=== PATIENT | female | born 1965 | race Hispanic/Latino ===

== ENCOUNTER 2021-10-01 17:15 | Emergency (ER) | payer OTHER ==
--- OUTSIDE RECORDS SUMMARY | 2021-10-01 17:18 | XMS REPORT | Continuity of Care Document ---
:1965 Author Organization [facility] t Address [address] [place] [address] Care Team Providers Name Role Phone WHITE Attending Clinician Unavailable WHITE Admitting Clinician Unavailable Problems This patient has no known problems. Allergies, Adverse Reactions, Alerts This patient has no known allergies or adverse reactions. Social History Smoking Status Start Date Stop Date Source Never smoker [facility] ([facility]KE[facility]) Medications This patient has no known medications. Procedures This patient has no known procedures. Encounters Start End Encounter Admission Attending Care Care Encounter Source Date/Time Date/Time Type Type Clinicians Facility Department ID 2020-06-01 2020-06-01 PAIN IN 3 FARSHAD [facility] [id number] [facility] [address] 15:48:00 23:59:00 RIGHT HIP [facility] [address] [facility] [address] ([address] V[address]SA) [place] [address] Results Test Description Test Time Test Comments Results Result Sour e Comments XR HIP COMP 2-3 2020-06-01 views 22:10:43 [facility] (LUF/KEITH/SA)Name: ZENIA PAUL : [id number] Sex: F Pr ocedure: XR HIP COMP 2-3 viewsOrder Date: 06/01/2020 3:57 PMOrdering Provider: FARSHAD Downinginical Indication: [id number]: Pain in right hip jointComparison: NoneFINDINGS:There is no fracture or dislocation.No significant degenerative changes.Visualized portions of the hemipelvis are normal.There is no lytic or sclerotic lesion.No suspicious calcifications.Impres delma:1. Negative exam of the right hip.This final report was electronically signed by Dr Celi Hopkins MD 06/01/202010:04 PMDictated By: CELI HOPKINSDate: 06/01/2020 22:04 XR LUMBAR SPINE 2020-06-01 (AP/LATERAL) 17:18:46 [facility] ([facility]/)Name: ZENIA PAUL : [id number] Sex: F Pr ocedure: XR LUMBAR SPINE (AP/LATERAL)Order Date: 06/01/2020 3:58 PMOrdering Provider: FARSHAD Ford Indication: [id number]: Low back painComparison: NoneFindings:There is no acute fracture or subluxation.Vertebral body heights are maintained.No significant degenerative disc changes or facet arthropathy.There is no appreciable scoliosis.There are no lytic or sclerotic lesions.The sacroiliac joints are normal.Impression:1. Negative Three-view exam of the lumbar spine.This final report was electronically signed by Dr Celi Hopkins MD 06/01/20205:12 PMDictated By: CELI HOPKINSDate: 06/01/2020 17:12
[2021-10-01] MEDS ORDERED: NA CHLORIDE 0.9% 500 ML ONE (17:41)
[2021-10-01] MEDS ORDERED: ONDANSETRON 4 MG/2 ML VIAL ONE (17:41)
[2021-10-01] MEDS ORDERED: MORPHINE 4 MG/ML SYR ONE (17:41)
[2021-10-01 18:09] LABS: Absolute Lymphocytes (CBC) 3.2 K/uL (0.7-4.9); Hematocrit 42.8 % (36.0-45.0); Lymphocytes % 35.4 % (15.3-44.8); MPV 7.9 fL (7.6-11.3); RBC Red Blood Cell Count 4.98 M/uL (3.86-4.86)
[2021-10-01 18:30] LABS: Albumin 3.9 g/dL (3.4-5.0); Bilirubin Direct 0.1 mg/dL (0-0.2); Bilirubin Total 0.6 mg/dL (0.2-1.0); Potassium 3.9 mmol/L (3.5-5.1); Protein, Total 8.7 g/dL (6.4-8.2)
--- NOTE | 2021-10-01 19:06 | RAD REPORT ---
EXAM DESCRIPTION: CTAbdomen Pelvis W Contrast - 10/01/2021 6:56 pm CLINICAL HISTORY: Abdominal pain. ABD PAIN COMPARISON: No comparisons TECHNIQUE: Biphasic CT imaging of the abdomen and pelvis was performed with 100 ml non-ionic IV cont rast. All CT scans are performed using dose optimization technique as appropriate and may include automated exposure control or mA/KV adjustment according to patient size. FINDINGS: The lung bases are clear. The liver, spleen, pancreas, adrenal glands and kidneys are within normal limits. No bowel obstruction, free air, free fluid or abscess. The appendix is normal. No evidence of signi ficant lymphadenopathy. No suspicious bony findings. IMPRESSION: No acute intra-abdominal or pelvic finding.
[2021-10-01] MEDS ORDERED: KETOROLAC 30 MG/ML INJ ONE (19:43)
--- NOTE | 2021-10-01 19:58 | RAD REPORT ---
EXAM DESCRIPTION: US - Abdomen Exam Limited - 10/01/2021 7:42 pm CLINICAL HISTORY: RUQ pain COMPARISON: ABDOMINAL EXAM LIMITED dated 11/27/2009 FINDINGS: The gallbladder demonstrates no gallstones. No pericholecystic fluid or gallbladder wall t hickening. The common bile duct is normal measuring 4-5 mm. The liver demonstrates no findings of intrahepatic biliary dilatation. IMPRESSION: Unremarkable examination.
--- NOTE | 2021-10-01 20:08 | EDPHYS ---
Physician Documentation [facility] Name: Neelam Zazueta Age: 56 yrs Sex: Female : 1965 Arrival Date: 10/01/2021 Time: 17:22 Bed 14 Private MD: ED Physician Ernesto Jordan HPI: 10/01 17:39 This 56 yrs old Female presents to ER via Ambulatory with complaints of pm1 Abdominal Pain. 17:39 The patient presents with abdominal pain in the right upper quadrant. pm1 17:39 Onset: The symptoms/episode began/occurred 2 day(s) ago. The symptoms do not radiate. pm1 Associated signs and symptoms: none. Pertinent negatives: nausea, vomiting, and diarrhea, chest pain, shortness of breath. The symptoms are described as achy. Modifying factors: The symptoms are alleviated by nothing, the symptoms are aggravated by lying down. Severity of pain: in the emergency department the pain is actually worse. The patient has not experienced similar symptoms in the past. The patient has not recently seen a physician. . Historical: - Allergies: 17:31 No Known Allergies; ll1 - PMHx: 17:31 None; ll1 - PSHx: 17:31 tubes tied; ll1 - Immunization history:: Client reports receiving the 2nd dose of the Covid vaccine. - Social history:: Smoking status: Patient denies any tobacco usage or history of. ROS: 17:39 Constitutional: Negative for fever, chills, and weight loss, Cardiovascular: Negative pm1 for chest pain, palpitations, and edema, Respiratory: Negative for shortness of breath, cough, wheezing, and pleuritic chest pain. 17:39 Back: Negative for injury and pain, : Negative for injury, bleeding, discharge, and swelling, MS/Extremity: Negative for injury and deformity, Skin: Negative for injury, rash, and discoloration, Neuro: Negative for headache, weakness, numbness, tingling, and seizure. 17:39 Abdomen/GI: Positive for abdominal pain, Negative for nausea, vomiting, and diarrhea. 17:39 All other systems are negative. Exam: 17:39 Constitutional: This is a well developed, well nourished patient who is awake, alert, pm1 and in no acute distress. Head/Face: Normocephalic, atraumatic. 17:39 Back: No spinal tenderness. No costovertebral tenderness. Full range of motion. Skin: Warm, dry with normal turgor. Normal color with no rashes, no lesions, and no evidence of cellulitis. MS/ Extremity: Pulses equal, no cyanosis. Neurovascular intact. Full, normal range of motion. 17:39 Eyes: Exam is negative for acute changes, Periorbital structures: appear normal, Conjunctiva: normal, no injection. 17:39 ENT: Exam is negative for acute changes, Mouth: no acute changes, Lips: normal, moist, Oral mucosa: normal, pink and intact, moist. 17:39 Cardiovascular: Exam negative for acute changes, Rate: normal, Rhythm: regular, Pulses: no pulse deficits are appreciated, Heart sounds: normal, normal S1and S2. 17:39 Respiratory: Exam negative for acute changes, respiratory distress, shortness of breath, Breath sounds: are clear throughout. 17:39 Abdomen/GI: Inspection: obese Palpation: soft, in all quadrants, mild abdominal tenderness, in the right upper quadrant. 17:39 Neuro: Exam negative for acute changes, Orientation: is normal, Mentation: is normal, Motor: is normal, moves all fours. Vital Signs: 17:30 BP 147 / 87; Pulse 87; Resp 16; Temp 97.7; Pulse Ox 99% ; Weight 92.53 kg; Pain 10/10; ll1 19:36 BP 122 / 69; Pulse 62; Resp 20; Pulse Ox 100% on R/A; vc1 MDM: 17:32 Patient medically screened. pm1 18:23 Data reviewed: vital signs. Data interpreted: Pulse oximetry: on room air is 99 %. pm1 Interpretation: normal. 20:07 Counseling: I had a detailed discussion with the patient and/or guardian regarding: the pm1 historical points, exam findings, and any diagnostic results supporting the discharge/admit diagnosis, lab results, radiology results, the need for outpatient follow up, to return to the emergency department if symptoms worsen or persist or if there are any questions or concerns that arise at home. 20:09 ED course: Patient with pain improvement with massage to right mid back. Palpation to pm1 the area caused pain to RUQ. Will treat the patient with valium and lidoderm patch. 20:11 ED course: PMP[place] reviewed. pm1 10/01 17:36 Order name: Basic Metabolic Panel; Complete Time: 18:32 pm1 10/01 17:36 Order name: CBC with Diff; Complete Time: 18:21 pm1 10/01 17:36 Order name: Hepatic Function; Complete Time: 18:32 pm1 10/01 17:36 Order name: Lipase; Complete Time: 18:32 pm1 10/01 17:36 Order name: CT Abd/Pelvis - IV Contrast Only; Complete Time: 19:08 pm1 10/01 19:13 Order name: US Abdomen Limited; Complete Time: 20:04 pm1 10/01 17:36 Order name: IV Saline Lock; Complete Time: 18:01 pm1 10/01 17:36 Order name: Labs collected and sent; Complete Time: 18:01 pm1 Administered Medications: 17:55 Drug: Zofran (Ondansetron) 4 mg Route: IVP; Site: right antecubital; vg1 19:45 Follow up: Response: No adverse reaction vc1 17:55 Drug: NS 0.9% 500 ml Route: IV; Rate: bolus; Site: right antecubital; vg1 20:54 Follow up: IV Status: Completed infusion; IV Intake: 500ml vc1 17:57 Drug: morphine 4 mg Route: IVP; Site: right antecubital; vg1 19:45 Follow up: Response: No adverse reaction; Pain is increased; Pain is coming back now vc1 19:45 Drug: Ketorolac 30 mg Route: IVP; Site: right antecubital; vc1 20:51 Follow up: Response: No adverse reaction; Pain is decreased vc1 20:50 Drug: Lidoderm Patch 5 % (700 mg/patch) 1 patches Route: Topical; Site: abdomen; vc1 20:50 Drug: Valium (diazepam) 2 mg Route: PO; vc1 20:50 Follow up: Response: No adverse reaction vc1 Disposition: 10/02 07:27 Co-signature as Attending Physician, Ernesto Jordan MD. rn Disposition Summary: 10/01/21 20:07 Discharge Ordered Location: Home pm1 Problem: new pm1 Symptoms: have improved pm1 Condition: Stable pm1 Diagnosis - Abdominal pain, unspecified pm1 Followup: pm1 - With: Emergency Department - When: As needed - Reason: Worsening of condition Followup: pm1 - With: Private Physician - When: 2 - 3 days - Reason: Recheck today's complaints, Continuance of care, Re-evaluation by your physician Discharge Instructions: - Discharge Summary Sheet pm1 - Abdominal Pain, Adult pm1 - Muscle Strain pm1 Forms: - Medication Reconciliation Form pm1 - Thank You Letter pm1 - Antibiotic Education pm1 - Prescription Opioid Use pm1 Prescriptions: - Lidoderm 5 % Topical adhesive patch,medicated - apply 1 patch by TRANSDERMAL route once daily As needed 12 hours on and 12 pm1 hours off in 24 hour period; 10 patch; Refills: 0, Product Selection Permitted - Valium 2 mg Oral Tablet - take 1 tablet by ORAL route every 8 hours As needed; 6 tablet; Refills: 0, pm1 Product Selection Permitted Signatures: Dispatcher [employer] EDErnesto Hook MD MD rn Marinas, Patrick, NP FREE LANCE ARTIST pm1 Zina Ricardo RN RN vg1 Yamel Santillan RN RN ll1 Harini Barrera RN RN vc1
--- NOTE | 2021-10-01 20:08 | ER ---
Nurse's Notes [facility] Name: Neelam Zazueta Age: 56 yrs Sex: Female : 1965 Arrival Date: 10/01/2021 Time: 17:22 Bed 14 [facility] MD: Diagnosis: Abdominal pain, unspecified Presentation: 10/01 17:30 Chief complaint: Patient states: RUQ abd pain since Friday. Coronavirus screen: Vaccine ll1 status: Patient reports receiving the 2nd dose of the covid vaccine. Client denies travel out of the [place] in the last 14 days. At this time, the client does not indicate any symptoms associated with coronavirus-19. Ebola Screen: Patient denies travel to an Ebola-affected area in the 21 days before illness onset. Initial Sepsis Screen: Does the patient meet any 2 criteria? No. Patient's initial sepsis screen is negative. Does the patient have a suspected source of infection? Yes: Acute abdominal pain. Risk Assessment: Do you want to hurt yourself or someone else? Patient reports no desire to harm self or others. Onset of symptoms was September 28, 2021. 17:30 Method Of Arrival: Ambulatory ll1 17:30 Acuity: SOFI 3 ll1 Historical: - Allergies: 17:31 No Known Allergies; ll1 - PMHx: 17:31 None; ll1 - PSHx: 17:31 tubes tied; ll1 - Immunization history:: Client reports receiving the 2nd dose of the Covid vaccine. - Social history:: Smoking status: Patient denies any tobacco usage or history of. Screenin:05 Abuse screen: Denies threats or abuse. Nutritional screening: No deficits noted. vg1 Tuberculosis screening: No symptoms or risk factors identified. Fall Risk No fall in past 12 months (0 pts). No secondary diagnosis (0 pts). IV access (20 points). Ambulatory Aid- None/Bed Rest/Nurse Assist (0 pts). Gait- Normal/Bed Rest/Wheelchair (0 pts) Mental Status- Oriented to own ability (0 pts). Total Ott Fall Scale indicates No Risk (0-24 pts). Assessment: 18:04 General: Appears in no apparent distress. uncomfortable, Behavior is calm, cooperative. vg1 Pain: Complains of pain in posterior aspect of right lateral abdomen and right upper quadrant Pain currently is 10 out of 10 on a pain scale. Quality of pain is described as sharp, Pain began 2-3 days ago. Neuro: Level of Consciousness is awake, alert, obeys commands, Oriented to person, place, time, situation. Cardiovascular: Patient's skin is warm and dry. Respiratory: Airway is patent Respiratory effort is even, unlabored. GI: Abdomen is round non-distended, Bowel sounds present X 4 quads. Abdomen is tender to palpation in right upper quadrant Patient currently denies diarrhea, nausea, vomiting. : No signs and/or symptoms were reported regarding the genitourinary system. EENT: No signs and/or symptoms were reported regarding the EENT system. Derm: Skin is intact, is healthy with good turgor. Musculoskeletal: Circulation, motion, and sensation intact. 19:36 Reassessment: Patient and/or family updated on plan of care and expected duration. Pain vc1 level reassessed. Pain: Complains of pain in right upper quadrant Pain does not radiate. Pain currently is 8 out of 10 on a pain scale. Vital Signs: 17:30 BP 147 / 87; Pulse 87; Resp 16; Temp 97.7; Pulse Ox 99% ; Weight 92.53 kg; Pain 10/10; ll1 19:36 BP 122 / 69; Pulse 62; Resp 20; Pulse Ox 100% on R/A; vc1 ED Course: 17:22 Patient arrived in ED. am2 17:31 Triage completed. ll1 17:31 Arm band placed on Patient placed in an exam room, on a stretcher. ll1 17:32 Quang Huang NP is PHCP. pm1 17:32 Ernesto Jordan MD is Attending Physician. pm1 17:37 Zina Ricardo, RN is Primary Nurse. vg1 17:50 Initial lab(s) drawn, by oh, sent to lab. Inserted saline lock: 22 gauge in right vg1 antecubital area, using aseptic technique. Blood collected. 18:05 Patient has correct armband on for positive identification. Placed in gown. Bed in low vg1 position. Call light in reach. Side rails up X 1. Adult w/ patient. 18:05 No provider procedures requiring assistance completed. vg1 18:56 CT Abd/Pelvis - IV Contrast Only In Process Unspecified. EDMS 19:29 Primary Nurse role handed off by Zina Ricardo, RN cs9 19:42 Abdomen Limited In Process Unspecified. EDMS 20:53 IV discontinued, intact, bleeding controlled, No redness/swelling at site. Pressure vc1 dressing applied. Administered Medications: 17:55 Drug: Zofran (Ondansetron) 4 mg Route: IVP; Site: right antecubital; vg1 19:45 Follow up: Response: No adverse reaction vc1 17:55 Drug: NS 0.9% 500 ml Route: IV; Rate: bolus; Site: right antecubital; vg1 20:54 Follow up: IV Status: Completed infusion; IV Intake: 500ml vc1 17:57 Drug: morphine 4 mg Route: IVP; Site: right antecubital; vg1 19:45 Follow up: Response: No adverse reaction; Pain is increased; Pain is coming back now vc1 19:45 Drug: Ketorolac 30 mg Route: IVP; Site: right antecubital; vc1 20:51 Follow up: Response: No adverse reaction; Pain is decreased vc1 20:50 Drug: Lidoderm Patch 5 % (700 mg/patch) 1 patches Route: Topical; Site: abdomen; vc1 20:50 Drug: Valium (diazepam) 2 mg Route: PO; vc1 20:50 Follow up: Response: No adverse reaction vc1 Intake: 20:54 IV: 500ml; Total: 500ml. vc1 Outcome: 20:07 Discharge ordered by MD. pm1 20:53 Discharged to home ambulatory. vc1 20:53 Condition: good 20:53 Discharge instructions given to patient, Instructed on discharge instructions, follow up and referral plans. medication usage, Demonstrated understanding of instructions, follow-up care, medications, Prescriptions given X 2. 20:54 Patient left the ED. vc1 Signatures: Dispatcher [employer] EDMS Quang Huang, MELISSA MARINE ENGINE MACHINIST APPRENTICE pm1 Jimena Al am2 Zina Ricardo RN RN vg1 Yamel Santillan RN RN 1 Katherine Bernard cs9 Harini Barrera RN RN vc1 Corrections: (The following items were deleted from the chart) 18:03 15:50 Inserted saline lock: 22 gauge in right antecubital area, using aseptic vg1 technique. Blood collected. [facility] 18:03 15:50 Initial lab(s) drawn, by me, sent to lab. vg1 vg1
[2021-10-01] MEDS ORDERED: LIDOCAINE 4% PATCH ONE (20:41)
[2021-10-01] MEDS ORDERED: DIAZEPAM 5 MG TABLET ONE (20:41)
[2021-10-01 21:41] VITALS: TEMP 97.7
[2021-10-01 21:42] VITALS: BP 122/69; O2SAT 100
== END 2021-10-01 20:54 | disposition home or self-care (01) ==
LOC: ER 17:15
DX: R10.11 Right upper quadrant pain (principal)
CPT/HCPCS: 96361; 85025; 80048; 36415; 80076; 83690; 74177; 76705; 96375; 96374; 99284; Q9967; J7040; J2405

== ENCOUNTER 2023-01-14 14:03 | Emergency (ER) | payer OTHER ==
--- OUTSIDE RECORDS SUMMARY | 2023-01-14 14:10 | XMS REPORT | Continuity of Care Document ---
:1965 Author Organization [facility] t Address [address] [place] [address] [address] [place] [address] Care Team Providers Name Role Phone Greg Ramos Primary Care Physician [phone] FARSHAD NICHOLAS Attending Clinician Unavailable FARSHAD NICHOLAS Admitting Clinician Unavailable Problems This patient has no known problems. Allergies, Adverse Reactions, Alerts This patient has no known allergies or adverse reactions. Social History Smoking Status Start Date Stop Date Source Never smoker [facility] ([facility]) Medications Ordered Filled Start Stop Current Ordering Indication Dosage Frequency Signature Comments Components Source Medication Medication Date Date Medication? Clinician (SIG) Name Name BROMPHEN/PS 0 No EUDOEPHEDRI 8-22 NE 00:00: HCL/DEXTRO 00 METHORPHAN HBR 30-2-10 MG/5ML SYRP METFORMIN 2021-0 No 500 HYDROCHLORI 8-18 DE ER 500 00:00: MG TB24 00 METFORMIN 2021-0 No 500 HYDROCHLORI 8-18 DE ER 500 00:00: MG TB24 00 TAKE 1 2021-0 No 1000 TABLET 8-08 DAILY 00:00: DIRECTED. 00 TAKE 1 2021-0 No 1000 TABLET 8-08 DAILY 00:00: DIRECTED. 00 TAKE 1 2021-0 No 1000 TABLET 8-08 DAILY 00:00: DIRECTED. 00 TAKE 1 2021-0 No 20 TABLET 7-26 DAILY. 00:00: 00 TAKE 1 2021-0 No 20 TABLET 7-26 DAILY. 00:00: 00 TAKE 1 2021-0 No 20 TABLET 7-26 DAILY. 00:00: 00 TAKE 1 2021-0 No 20 TABLET 7-25 DAILY. 00:00: 00 TAKE 1 2021-0 No 20 TABLET 7-25 DAILY. 00:00: 00 TAKE 1 2022-0 No TABLET 7-25 DAILY. 00:00: 00 TAKE 1 2022-0 No 20 TABLET 7-25 DAILY. 00:00: 00 metformin 2022-0 No 1mg ER 500 mg 4-10 24 hr 00:00: tablet,exte 00 nded release (gastric) Unithroid 2022-0 No 1mcg 100 mcg 4-10 tablet 00:00: 00 metformin 2022-0 No 1mg ER 500 mg 4-10 24 hr 00:00: tablet,exte 00 nded release (gastric) Unithroid 2-0 No 1mcg 100 mcg 4-10 tablet 00:00: 00 metformin 2022-0 No 1mg ER 500 mg 4-10 24 hr 00:00: tablet,exte 00 nded release (gastric) Dose 2-0 No Unknown 4-10 00:00: 00 metformin 2022-0 No 1mg ER 500 mg 4-10 24 hr 00:00: tablet,exte 00 nded release (gastric) Unithroid 2-0 No 1mcg 100 mcg 4-10 tablet 00:00: 00 atorvastati 2-0 No 1mg n 10 mg 4-07 tablet 00:00: 00 lisinopril 2022-0 No 1mg 20 mg 4-07 tablet 00:00: 00 Dose 2022-0 No Unknown 4-07 00:00: 00 Dose 2022-0 No Unknown 4-07 00:00: 00 Dose 2022-0 No Unknown 4-07 00:00: 00 Dose 2022-0 No Unknown 4-07 00:00: 00 Dose 2022-0 No Unknown 4-07 00:00: 00 Dose 2022-0 No Unknown 4-07 00:00: 00 Dose 2022-0 No Unknown 4-07 00:00: 00 Dose 2022-0 No Unknown 4-07 00:00: 00 Dose 2022-0 No Unknown 4-07 00:00: 00 Dose 2022-0 No Unknown 4-07 00:00: 00 Dose 2022-0 No Unknown 4-07 00:00: 00 Dose 2022-0 No Unknown 4-07 00:00: 00 Dose 2022-0 No Unknown 4-07 00:00: 00 Dose 2022-0 No Unknown 4-07 00:00: 00 Dose 2022-0 No Unknown 4-07 00:00: 00 Dose 2022-0 No Unknown 4-07 00:00: 00 Dose 2022-0 No Unknown 4-07 00:00: 00 Dose 2022-0 No Unknown 4-07 00:00: 00 Dose 2022-0 No Unknown 4-07 00:00: 00 Dose 2022-0 No Unknown 4-07 00:00: 00 Dose 2022-0 No Unknown 4-07 00:00: 00 Dose 2022-0 No Unknown 4-07 00:00: 00 Dose 2022-0 No Unknown 4-07 00:00: 00 Dose 2022-0 No Unknown 4-07 00:00: 00 Dose 2022-0 No Unknown 4-07 00:00: 00 Dose 2022-0 No Unknown 4-07 00:00: 00 Dose 2022-0 No Unknown 4-07 00:00: 00 Dose 2022-0 No Unknown 4-07 00:00: 00 Dose 2022-0 No Unknown 4-07 00:00: 00 Dose 2022-0 No Unknown 4-07 00:00: 00 Dose 2022-0 No Unknown 4-07 00:00: 00 Dose 2022-0 No Unknown 4-07 00:00: 00 Dose 2022-0 No Unknown 4-07 00:00: 00 Dose 2022-0 No Unknown 4-07 00:00: 00 atorvastati 2022-0 No 1mg n 10 mg 4-07 tablet 00:00: 00 lisinopril 2022-0 No 1mg 20 mg 4-07 tablet 00:00: 00 atorvastati 2022-0 No 1mg n 10 mg 4-07 tablet 00:00: 00 lisinopril 2022-0 No 1mg 20 mg 4-07 tablet 00:00: 00 Dose 2022-0 No Unknown 4-07 00:00: 00 Dose 2022-0 No Unknown 4-07 00:00: 00 Dose 2022-0 No Unknown 4-07 00:00: 00 Dose 2022-0 No Unknown 4-07 00:00: 00 Dose 2022-0 No Unknown 4-07 00:00: 00 Dose 2022-0 No Unknown 4-07 00:00: 00 Dose 2022-0 No Unknown 4-07 00:00: 00 Dose 2022-0 No Unknown 4-07 00:00: 00 Dose 2022-0 No Unknown 4-07 00:00: 00 Dose 2022-0 No Unknown 4-07 00:00: 00 Dose 2022-0 No Unknown 4-07 00:00: 00 Dose 2022-0 No Unknown 4-07 00:00: 00 Dose 2022-0 No Unknown 4-07 00:00: 00 Dose 2022-0 No Unknown 4-07 00:00: 00 Dose 2022-0 No Unknown 4-07 00:00: 00 Dose 2022-0 No Unknown 4-07 00:00: 00 Dose 2022-0 No Unknown 4-07 00:00: 00 Dose 2022-0 No Unknown 4-07 00:00: 00 Dose 2022-0 No Unknown 4-07 00:00: 00 Dose 2022-0 No Unknown 4-07 00:00: 00 Dose 2022-0 No Unknown 4-07 00:00: 00 Dose 2022-0 No Unknown 4-07 00:00: 00 Dose 2022-0 No Unknown 4-07 00:00: 00 Dose 2022-0 No Unknown 4-07 00:00: 00 Dose 2022-0 No Unknown 4-07 00:00: 00 Dose 2022-0 No Unknown 4-07 00:00: 00 Dose 2022-0 No Unknown 4-07 00:00: 00 Dose 2022-0 No Unknown 4-07 00:00: 00 Dose 2022-0 No Unknown 4-07 00:00: 00 Dose 2022-0 No Unknown 4-07 00:00: 00 Dose 2022-0 No Unknown 4-07 00:00: 00 Dose 2022-0 No Unknown 4-07 00:00: 00 Dose 2022-0 No Unknown 4-07 00:00: 00 Dose 2022-0 No Unknown 4-07 00:00: 00 Dose 2022-0 No Unknown 4-07 00:00: 00 Dose 2022-0 No Unknown 4-07 00:00: 00 Dose 2022-0 No Unknown 4-07 00:00: 00 Dose 2022-0 No Unknown 4-07 00:00: 00 Dose 2022-0 No Unknown 4-07 00:00: 00 Dose 2022-0 No Unknown 4-07 00:00: 00 Dose 2022-0 No Unknown 4-07 00:00: 00 Dose 2022-0 No Unknown 4-07 00:00: 00 Dose 2022-0 No Unknown 4-07 00:00: 00 Dose 2022-0 No Unknown 4-07 00:00: 00 Dose 2022-0 No Unknown 4-07 00:00: 00 Dose 2022-0 No Unknown 4-07 00:00: 00 Dose 2022-0 No Unknown 4-07 00:00: 00 Dose 2022-0 No Unknown 4-07 00:00: 00 Dose 2022-0 No Unknown 4-07 00:00: 00 Dose 2022-0 No Unknown 4-07 00:00: 00 Dose 2022-0 No Unknown 4-07 00:00: 00 Dose 2022-0 No Unknown 4-07 00:00: 00 Dose 2022-0 No Unknown 4-07 00:00: 00 Dose 2022-0 No Unknown 4-07 00:00: 00 Dose 2022-0 No Unknown 4-07 00:00: 00 atorvastati 2022-0 No 1mg n 10 mg 4-07 tablet 00:00: 00 lisinopril 2022-0 No 1mg 20 mg 4-07 tablet 00:00: 00 Dose 2022-0 No Unknown 4-07 00:00: 00 Dose 2022-0 No Unknown 4-07 00:00: 00 Dose 2022-0 No Unknown 4-07 00:00: 00 Dose 2022-0 No Unknown 4-07 00:00: 00 Dose 2022-0 No Unknown 4-07 00:00: 00 Dose 2022-0 No Unknown 4-07 00:00: 00 Dose 2022-0 No Unknown 4-07 00:00: 00 Dose 2022-0 No Unknown 4-07 00:00: 00 Dose 2022-0 No Unknown 4-07 00:00: 00 Dose 2022-0 No Unknown 4-07 00:00: 00 Dose 2022-0 No Unknown 4-07 00:00: 00 Dose 2022-0 No Unknown 4-07 00:00: 00 Dose 2022-0 No Unknown 4-07 00:00: 00 Dose 2022-0 No Unknown 4-07 00:00: 00 Dose 2022-0 No Unknown 4-07 00:00: 00 Dose 2022-0 No Unknown 4-07 00:00: 00 Dose 2022-0 No Unknown 4-07 00:00: 00 Dose 2022-0 No Unknown 4-07 00:00: 00 Dose 2022-0 No Unknown 4-07 00:00: 00 Dose 2022-0 No Unknown 4-07 00:00: 00 Dose 2022-0 No Unknown 4-07 00:00: 00 Dose 2022-0 No Unknown 4-07 00:00: 00 Dose 2022-0 No Unknown 4-07 00:00: 00 Dose 2022-0 No Unknown 4-07 00:00: 00 Dose 2022-0 No Unknown 4-07 00:00: 00 Dose 2022-0 No Unknown 4-07 00:00: 00 Dose 2022-0 No Unknown 4-07 00:00: 00 Dose 2022-0 No Unknown 4-07 00:00: 00 Dose 2022-0 No Unknown 4-07 00:00: 00 Dose 2022-0 No Unknown 4-07 00:00: 00 Dose 2022-0 No Unknown 4-07 00:00: 00 Dose 2022-0 No Unknown 4-07 00:00: 00 Dose 2022-0 No Unknown 4-07 00:00: 00 Dose 2022-0 No Unknown 4-07 00:00: 00 Dose 2022-0 No Unknown 4-07 00:00: 00 Dose 2022-0 No Unknown 4-07 00:00: 00 Dose 2022-0 No Unknown 4-07 00:00: 00 Dose 2022-0 No Unknown 4-07 00:00: 00 Dose 2022-0 No Unknown 4-07 00:00: 00 Dose 2022-0 No Unknown 4-07 00:00: 00 Dose 2022-0 No Unknown 4-07 00:00: 00 Dose 2022-0 No Unknown 4-07 00:00: 00 Dose 2022-0 No Unknown 4-07 00:00: 00 Dose 2022-0 No Unknown 4-07 00:00: 00 Dose 2022-0 No Unknown 4-07 00:00: 00 Dose 2022-0 No Unknown 4-07 00:00: 00 Dose 2022-0 No Unknown 4-07 00:00: 00 Lidoderm 5 2-0 No % % topical 2-15 patch 00:00: 00 cyclobenzap 2-0 No 1mg rine 10 mg 2-15 tablet 00:00: 00 Lidoderm 5 2022-0 No % % topical 2-15 patch 00:00: 00 cyclobenzap 2022-0 No 1mg rine 10 mg 2-15 tablet 00:00: 00 Lidoderm 5 2022-0 No % % topical 2-15 patch 00:00: 00 cyclobenzap 2022-0 No 1mg rine 10 mg 2-15 tablet 00:00: 00 Lidoderm 5 2022-0 No % % topical 2-15 patch 00:00: 00 cyclobenzap 2-0 No 1mg rine 10 mg 2-15 tablet 00:00: 00 Dose 2022-0 No Unknown 1-10 00:00: 00 Dose 2022-0 No Unknown 1-10 00:00: 00 Dose 2022-0 No Unknown 1-10 00:00: 00 Dose 2-0 No Unknown 1-10 00:00: 00 diclofenac 1-1 No 1% 1 % topical 1-10 gel 00:00: 00 ibuprofen 1-1 No 1mg 800 mg 1-10 tablet 00:00: 00 cyclobenzap 2020-1 No 1mg rine 10 mg 1-10 tablet 00:00: 00 diclofenac 1-1 No 1% 1 % topical 1-10 gel 00:00: 00 ibuprofen 1-1 No 1mg 800 mg 1-10 tablet 00:00: 00 cyclobenzap 1-1 No 1mg rine 10 mg 1-10 tablet 00:00: 00 diclofenac 1-1 No 1% 1 % topical 1-10 gel 00:00: 00 ibuprofen 1-1 No 1mg 800 mg 1-10 tablet 00:00: 00 cyclobenzap 1-1 No 1mg rine 10 mg 1-10 tablet 00:00: 00 diclofenac 2021-1 No 1% 1 % topical 1-10 gel 00:00: 00 ibuprofen 1-1 No 1mg 800 mg 1-10 tablet 00:00: 00 cyclobenzap 1-1 No 1mg rine 10 mg 1-10 tablet 00:00: 00 Dose 1-1 No Unknown 0-09 00:00: 00 Dose 1-1 No Unknown 0-09 00:00: 00 Dose 1-1 No Unknown 0-09 00:00: 00 Dose 1-1 No Unknown 0-09 00:00: 00 glimepiride 2020-1 No 1mg 4 mg tablet 0-08 00:00: 00 Dose 2020-1 No Unknown 0-08 00:00: 00 metformin 2020-1 No 1mg 1,000 mg 0-08 tablet 00:00: 00 metformin 2020-1 No 1mg 1,000 mg 0-08 tablet 00:00: 00 Unithroid 2020-1 No 1mcg 100 mcg 0-08 tablet 00:00: 00 Unithroid 2020-1 No 1mcg 100 mcg 0-08 tablet 00:00: 00 glimepiride 2020-1 No 1mg 4 mg tablet 0-08 00:00: 00 Dose 2020-1 No Unknown 0-08 00:00: 00 metformin 2020-1 No 1mg 1,000 mg 0-08 tablet 00:00: 00 metformin 2020-1 No 1mg 1,000 mg 0-08 tablet 00:00: 00 Unithroid 2020-1 No 1mcg 100 mcg 0-08 tablet 00:00: 00 Unithroid 2020-1 No 1mcg 100 mcg 0-08 tablet 00:00: 00 glimepiride 2020-1 No 1mg 4 mg tablet 0-08 00:00: 00 Dose 2020-1 No Unknown 0-08 00:00: 00 metformin 2020-1 No 1mg 1,000 mg 0-08 tablet 00:00: 00 metformin 2020-1 No 1mg 1,000 mg 0-08 tablet 00:00: 00 Unithroid 2020-1 No 1mcg 100 mcg 0-08 tablet 00:00: 00 Unithroid 2020-1 No 1mcg 100 mcg 0-08 tablet 00:00: 00 glimepiride 2020-1 No 1mg 4 mg tablet 0-08 00:00: 00 Dose 2020-1 No Unknown 0-08 00:00: 00 metformin 2020-1 No 1mg 1,000 mg 0-08 tablet 00:00: 00 metformin 2020-1 No 1mg 1,000 mg 0-08 tablet 00:00: 00 Dose 2020-1 No Unknown 0-08 00:00: 00 Unithroid 2020-1 No 1mcg 100 mcg 0-08 tablet 00:00: 00 levothyroxi 2020-0 No 1mcg ne 100 mcg 7-20 tablet 00:00: 00 levothyroxi 2021-0 No 1mcg ne 100 mcg 7-20 tablet 00:00: 00 levothyroxi 2021-0 No 1mcg ne 100 mcg 7-20 tablet 00:00: 00 levothyroxi 2021-0 No 1mcg ne 100 mcg 7-20 tablet 00:00: 00 glimepiride 2021-0 No 1mg 4 mg tablet 6-30 00:00: 00 naproxen 2021-0 No 1mg 500 mg 6-30 tablet 00:00: 00 cyclobenzap 2021-0 No 1mg rine 5 mg 6-30 tablet 00:00: 00 glimepiride 2021-0 No 1mg 4 mg tablet 6-30 00:00: 00 naproxen 2021-0 No 1mg 500 mg 6-30 tablet 00:00: 00 cyclobenzap 2021-0 No 1mg rine 5 mg 6-30 tablet 00:00: 00 glimepiride 2021-0 No 1mg 4 mg tablet 6-30 00:00: 00 naproxen 2021-0 No 1mg 500 mg 6-30 tablet 00:00: 00 cyclobenzap 2021-0 No 1mg rine 5 mg 6-30 tablet 00:00: 00 glimepiride 2021-0 No 1mg 4 mg tablet 6-30 00:00: 00 naproxen 2021-0 No 1mg 500 mg 6-30 tablet 00:00: 00 cyclobenzap 2021-0 No 1mg rine 5 mg 6-30 tablet 00:00: 00 levothyroxi 2021-0 No 1mcg ne 100 mcg 6-17 tablet 00:00: 00 levothyroxi 2021-0 No 1mcg ne 100 mcg 6-17 tablet 00:00: 00 levothyroxi 2021-0 No 1mcg ne 100 mcg 6-17 tablet 00:00: 00 levothyroxi 2021-0 No 1mcg ne 100 mcg 6-17 tablet 00:00: 00 levothyroxi 2021-0 No 1mcg ne 100 mcg 4-12 tablet 00:00: 00 levothyroxi 2021-0 No 1mcg ne 100 mcg 4-12 tablet 00:00: 00 levothyroxi 2021-0 No 1mcg ne 100 mcg 4-12 tablet 00:00: 00 levothyroxi 2021-0 No 1mcg ne 100 mcg 4-12 tablet 00:00: 00 ondansetron 2021-0 No 1mg 4 mg 4-08 disintegrat 00:00: ing tablet 00 ondansetron 2021-0 No 1mg 4 mg 4-08 disintegrat 00:00: ing tablet 00 ondansetron 2021-0 No 1mg 4 mg 4-08 disintegrat 00:00: ing tablet 00 ondansetron 2021-0 No 1mg 4 mg 4-08 disintegrat 00:00: ing tablet 00 naproxen 2021-0 No 1mg 500 mg 3-09 tablet 00:00: 00 lisinopril 2021-0 No 1mg 20 mg 3-09 tablet 00:00: 00 atorvastati 2021-0 No 1mg n 10 mg 3-09 tablet 00:00: 00 naproxen 2021-0 No 1mg 500 mg 3-09 tablet 00:00: 00 lisinopril 2021-0 No 1mg 20 mg 3-09 tablet 00:00: 00 atorvastati 2021-0 No 1mg n 10 mg 3-09 tablet 00:00: 00 metformin 2021-0 No 1mg 1,000 mg 3-09 tablet 00:00: 00 metformin 2021-0 No 1mg 1,000 mg 3-09 tablet 00:00: 00 naproxen 2021-0 No 1mg 500 mg 3-09 tablet 00:00: 00 lisinopril 2021-0 No 1mg 20 mg 3-09 tablet 00:00: 00 atorvastati 2021-0 No 1mg n 10 mg 3-09 tablet 00:00: 00 metformin 2021-0 No 1mg 1,000 mg 3-09 tablet 00:00: 00 naproxen 2021-0 No 1mg 500 mg 3-09 tablet 00:00: 00 lisinopril 2021-0 No 1mg 20 mg 3-09 tablet 00:00: 00 atorvastati 2021-0 No 1mg n 10 mg 3-09 tablet 00:00: 00 metformin 2021-0 No 1mg 1,000 mg 3-09 tablet 00:00: 00 levothyroxi 2021-0 No 1mcg ne 100 mcg 2-09 tablet 00:00: 00 levothyroxi 2020-0 No 1mcg ne 100 mcg 2-09 tablet 00:00: 00 levothyroxi 2020-0 No 1mcg ne 100 mcg 2-09 tablet 00:00: 00 levothyroxi 2020-0 No 1mcg ne 100 mcg 2-09 tablet 00:00: 00 glimepiride 2020-1 No 1mg 4 mg tablet 124 00:00: 00 metformin 2020-1 No 1mg 1,000 mg 1-24 tablet 00:00: 00 glimepiride 2019-1 No 1mg 4 mg tablet 24 00:00: 00 metformin 2020-1 No 1mg 1,000 mg 1-24 tablet 00:00: 00 glimepiride 2019-1 No 1mg 4 mg tablet 24 00:00: 00 metformin 2019-1 No 1mg 1,000 mg 1-24 tablet 00:00: 00 glimepiride 2019-1 No 1mg 4 mg tablet 24 00:00: 00 metformin 2019-1 No 1mg 1,000 mg 1-24 tablet 00:00: 00 levothyroxi 2019-1 No 1mcg ne 100 mcg 1-10 tablet 00:00: 00 levothyroxi 2019-1 No 1mcg ne 100 mcg 1-10 tablet 00:00: 00 levothyroxi 2019-1 No 1mcg ne 100 mcg 1-10 tablet 00:00: 00 levothyroxi 2019-1 No 1mcg ne 100 mcg 1-10 tablet 00:00: 00 naproxen 2019-1 No 1mg 500 mg 0-28 tablet 00:00: 00 levothyroxi 2019-1 No 1mcg ne 100 mcg 0-28 tablet 00:00: 00 naproxen 2020-1 No 1mg 500 mg 0-28 tablet 00:00: 00 levothyroxi 2019-1 No 1mcg ne 100 mcg 0-28 tablet 00:00: 00 naproxen 2020-1 No 1mg 500 mg 0-28 tablet 00:00: 00 levothyroxi 2019-1 No 1mcg ne 100 mcg 0-28 tablet 00:00: 00 naproxen 2019-1 No 1mg 500 mg 0-28 tablet 00:00: 00 levothyroxi 2020-1 No 1mcg ne 100 mcg 0-28 tablet 00:00: 00 lisinopril 2020-0 No 1mg 20 mg 9-08 tablet 00:00: 00 glimepiride 2020-0 No 1mg 4 mg tablet 9 00:00: 00 atorvastati 2020-0 No 1mg n 10 mg 9-08 tablet 00:00: 00 lisinopril 2020-0 No 1mg 20 mg 9-08 tablet 00:00: 00 glimepiride 2020-0 No 1mg 4 mg tablet 9 00:00: 00 atorvastati 2020-0 No 1mg n 10 mg 9-08 tablet 00:00: 00 lisinopril 2020-0 No 1mg 20 mg 9-08 tablet 00:00: 00 glimepiride 2020-0 No 1mg 4 mg tablet 9 00:00: 00 atorvastati 2020-0 No 1mg n 10 mg 9-08 tablet 00:00: 00 lisinopril 2020-0 No 1mg 20 mg 9-08 tablet 00:00: 00 glimepiride 2020-0 No 1mg 4 mg tablet 9 00:00: 00 atorvastati 2020-0 No 1mg n 10 mg 9-08 tablet 00:00: 00 levothyroxi 2020-0 No 1mcg ne 100 mcg 8-06 tablet 00:00: 00 levothyroxi 2020-0 No 1mcg ne 100 mcg 8-06 tablet 00:00: 00 levothyroxi 2020-0 No 1mcg ne 100 mcg 8-06 tablet 00:00: 00 levothyroxi 2020-0 No 1mcg ne 100 mcg 8-06 tablet 00:00: 00 lisinopril 2020-0 No 1mg 20 mg 6-24 tablet 00:00: 00 glimepiride 2020-0 No 1mg 4 mg tablet 6-24 00:00: 00 metformin 2020-0 No 1mg 1,000 mg 6-24 tablet 00:00: 00 lisinopril 2020-0 No 1mg 20 mg 6-24 tablet 00:00: 00 glimepiride 2020-0 No 1mg 4 mg tablet 6-24 00:00: 00 metformin 2020-0 No 1mg 1,000 mg 6-24 tablet 00:00: 00 lisinopril 2020-0 No 1mg 20 mg 6-24 tablet 00:00: 00 glimepiride 2020-0 No 1mg 4 mg tablet 6-24 00:00: 00 metformin 2020-0 No 1mg 1,000 mg 6-24 tablet 00:00: 00 lisinopril 2020-0 No 1mg 20 mg 6-24 tablet 00:00: 00 glimepiride 2020-0 No 1mg 4 mg tablet 6-24 00:00: 00 metformin 2020-0 No 1mg 1,000 mg 6-24 tablet 00:00: 00 atorvastati 2020-0 No 1mg n 10 mg 3-20 tablet 00:00: 00 atorvastati 2020-0 No 1mg n 10 mg 3-20 tablet 00:00: 00 atorvastati 2020-0 No 1mg n 10 mg 3-20 tablet 00:00: 00 atorvastati 2020-0 No 1mg n 10 mg 3-20 tablet 00:00: 00 diclofenac 2020-0 No % 1 % topical 3-18 gel 00:00: 00 atorvastati 2020-0 No 1mg n 10 mg 3-18 tablet 00:00: 00 lisinopril 2020-0 No 1mg 20 mg 3-18 tablet 00:00: 00 glimepiride 2020-0 No 1mg 4 mg tablet 3-18 00:00: 00 metformin 2020-0 No 1mg 1,000 mg 3-18 tablet 00:00: 00 levothyroxi 2020-0 No 1mcg ne 100 mcg 3-18 tablet 00:00: 00 diclofenac 2020-0 No % 1 % topical 3-18 gel 00:00: 00 atorvastati 2020-0 No 1mg n 10 mg 3-18 tablet 00:00: 00 diclofenac 2020-0 No % 1 % topical 3-18 gel 00:00: 00 atorvastati 2020-0 No 1mg n 10 mg 3-18 tablet 00:00: 00 lisinopril 2020-0 No 1mg 20 mg 3-18 tablet 00:00: 00 glimepiride 2020-0 No 1mg 4 mg tablet 3-18 00:00: 00 metformin 2020-0 No 1mg 1,000 mg 3-18 tablet 00:00: 00 levothyroxi 2020-0 No 1mcg ne 100 mcg 3-18 tablet 00:00: 00 lisinopril 2020-0 No 1mg 20 mg 3-18 tablet 00:00: 00 glimepiride 2020-0 No 1mg 4 mg tablet 3-18 00:00: 00 diclofenac 2020-0 No % 1 % topical 3-18 gel 00:00: 00 atorvastati 2020-0 No 1mg n 10 mg 3-18 tablet 00:00: 00 lisinopril 2020-0 No 1mg 20 mg 3-18 tablet 00:00: 00 glimepiride 2020-0 No 1mg 4 mg tablet 3-18 00:00: 00 metformin 2020-0 No 1mg 1,000 mg 3-18 tablet 00:00: 00 levothyroxi 2020-0 No 1mcg ne 100 mcg 3-18 tablet 00:00: 00 metformin 2020-0 No 1mg 1,000 mg 3-18 tablet 00:00: 00 levothyroxi 2020-0 No 1mcg ne 100 mcg 3-18 tablet 00:00: 00 Immunizations Ordered Immunization Filled Immunization Date Status Commen Source Name Name Influenza, injectable, 2022-06-17 Completed Marlon Cohen Canine 00:00:00 Kidney, preservative-free, quadrivalent Moderna COVID-19 2021-07-19 Completed Vaccine 00:00:00 Moderna COVID-19 2021-07-19 Completed Vaccine 00:00:00 Moderna COVID-19 2021-07-19 Completed Vaccine 00:00:00 Moderna COVID-19 2021-07-19 Completed Vaccine 00:00:00 Moderna COVID-19 2020-12-20 Completed Vaccine 00:00:00 Moderna COVID-19 2020-12-20 Completed Vaccine 00:00:00 Moderna COVID-19 2020-12-20 Completed Vaccine 00:00:00 Moderna COVID-19 2020-12-20 Completed Vaccine 00:00:00 Moderna COVID-19 2020-10-23 Completed Vaccine 00:00:00 Moderna COVID-19 2020-10-23 Completed Vaccine 00:00:00 Moderna COVID-19 2020-10-23 Completed Vaccine 00:00:00 Moderna COVID-19 2020-10-23 Completed Vaccine 00:00:00 Influenza, seasonal, 2020-06-14 Completed inj 00:00:00 Influenza, seasonal, 2020-06-14 Completed inj 00:00:00 Influenza, seasonal, 2020-06-14 Completed inj 00:00:00 Influenza, seasonal, 2020-06-14 Completed inj 00:00:00 Vital Signs Vital Name Observation Time Observation Value Comments Source BP Systolic 2022-06-17 16:52:00 108 mm[Hg] BP Diastolic 2022-06-17 16:52:00 70 mm[Hg] Weight Measured 2022-06-17 16:52:00 201.20 pounds Height Measured 2022-06-17 16:52:00 63.00 inches Body Temperature 2022-06-17 16:52:00 97.30 degrees Heart Rate 2022-06-17 16:52:00 88.00 /min Respiratory Rate 2022-06-17 16:52:00 BP Systolic 2022-04-04 15:08:00 105 mm[Hg] BP Diastolic 2022-04-04 15:08:00 66 mm[Hg] Weight Measured 2022-04-04 15:08:00 204.80 pounds Height Measured 2022-04-04 15:08:00 63.00 inches Body Temperature 2022-04-04 15:08:00 97.30 degrees Heart Rate 2022-04-04 15:08:00 94.00 /min Respiratory Rate 2022-04-04 15:08:00 BP Systolic 2022-03-25 17:06:00 109 mm[Hg] BP Diastolic 2022-03-25 17:06:00 70 mm[Hg] Weight Measured 2022-03-25 17:06:00 207.80 pounds Height Measured 2022-03-25 17:06:00 63.00 inches Body Temperature 2022-03-25 17:06:00 97.30 degrees Heart Rate 2022-03-25 17:06:00 68.00 /min Respiratory Rate 2022-03-25 17:06:00 21.00 /min BP Systolic 2022 15:52:00 129 mm[Hg] BP Diastolic 2022 15:52:00 70 mm[Hg] Weight Measured 2022 15:52:00 204.00 pounds Height Measured 2022 15:52:00 63.00 inches Body Temperature 2022 15:52:00 97.60 degrees Heart Rate 2022 15:52:00 70.00 /min Respiratory Rate 2022 15:52:00 21.00 /min BP Systolic 2021-11-22 15:50:00 142 mm[Hg] BP Diastolic 2021-11-22 15:50:00 91 mm[Hg] Weight Measured 2021-11-22 15:50:00 202.40 pounds Height Measured 2021-11-22 15:50:00 63.00 inches Body Temperature 2021-11-22 15:50:00 97.40 degrees Heart Rate 2021-11-22 15:50:00 76.00 /min Respiratory Rate 2021-11-22 15:50:00 BP Systolic 2021-10-02 16:14:00 139 mm[Hg] BP Diastolic 2021-10-02 16:14:00 80 mm[Hg] Weight Measured 2021-10-02 16:14:00 206.00 pounds Height Measured 2021-10-02 16:14:00 63.00 inches Body Temperature 2021-10-02 16:14:00 97.20 degrees Heart Rate 2021-10-02 16:14:00 70.00 /min Respiratory Rate 2021-10-02 16:14:00 BP Systolic 2021-10-01 16:24:00 129 mm[Hg] BP Diastolic 2021-10-01 16:24:00 77 mm[Hg] Weight Measured 2021-10-01 16:24:00 204.00 pounds Height Measured 2021-10-01 16:24:00 63.00 inches Body Temperature 2021-10-01 16:24:00 97.60 degrees Heart Rate 2021-10-01 16:24:00 78.00 /min Respiratory Rate 2021-10-01 16:24:00 21.00 /min BP Systolic 2021-10-01 08:46:00 BP Diastolic 2021-10-01 08:46:00 Weight Measured 2021-10-01 08:46:00 210.00 pounds Height Measured 2021-10-01 08:46:00 63.00 inches Body Temperature 2021-10-01 08:46:00 Heart Rate 2021-10-01 08:46:00 Respiratory Rate 2021-10-01 08:46:00 BP Systolic 2021-07-26 10:52:00 148 mm[Hg] BP Diastolic 2021-07-26 10:52:00 79 mm[Hg] Weight Measured 2021-07-26 10:52:00 208.40 pounds Height Measured 2021-07-26 10:52:00 63.00 inches Body Temperature 2021-07-26 10:52:00 98.30 degrees Heart Rate 2021-07-26 10:52:00 67.00 /min Respiratory Rate 2021-07-26 10:52:00 BP Systolic 2021-06-27 08:03:00 111 mm[Hg] BP Diastolic 2021-06-27 08:03:00 71 mm[Hg] Weight Measured 2021-06-27 08:03:00 211.20 pounds Height Measured 2021-06-27 08:03:00 63.00 inches Body Temperature 2021-06-27 08:03:00 97.40 degrees Heart Rate 2021-06-27 08:03:00 66.00 /min Respiratory Rate 2021-06-27 08:03:00 BP Systolic 2021-05-25 09:01:00 109 mm[Hg] BP Diastolic 2021-05-25 09:01:00 71 mm[Hg] Weight Measured 2021-05-25 09:01:00 210.60 pounds Height Measured 2021-05-25 09:01:00 63.00 inches Body Temperature 2021-05-25 09:01:00 97.30 degrees Heart Rate 2021-05-25 09:01:00 90.00 /min Respiratory Rate 2021-05-25 09:01:00 BP Systolic 2021-04-18 08:32:00 BP Diastolic 2021-04-18 08:32:00 Weight Measured 2021-04-18 08:32:00 230.00 pounds Height Measured 2021-04-18 08:32:00 63.00 inches Body Temperature 2021-04-18 08:32:00 Heart Rate 2021-04-18 08:32:00 Respiratory Rate 2021-04-18 08:32:00 BP Systolic 2021-02-18 23:28:00 116 mm[Hg] BP Diastolic 2021-02-18 23:28:00 68 mm[Hg] Weight Measured 2021-02-18 23:28:00 229.20 pounds Height Measured 2021-02-18 23:28:00 63.50 inches Body Temperature 2021-02-18 23:28:00 97.40 degrees Heart Rate 2021-02-18 23:28:00 75.00 /min Respiratory Rate 2021-02-18 23:28:00 16.00 /min Procedures This patient has no known procedures. Plan of Care Planned Activity Planned Date Details Comments Source Goal Plan of Care Note [code = 85334-2] Goal Plan of Care Note [code = 02468-4] Goal Plan of Care Note [code = 47146-8] Goal Plan of Care Note [code = 43786-6] Goal Plan of Care Note [code = 39135-5] Goal Plan of Care Note [code = 85881-7] Goal Plan of Care Note [code = 40958-8] Goal Plan of Care Note [code = 73289-5] Goal Plan of Care Note [code = 00218-6] Goal Plan of Care Note [code = 39061-3] Goal Plan of Care Note [code = 68649-5] Goal Plan of Care Note [code = 89693-6] Goal Plan of Care Note [code = 61138-0] Goal Plan of Care Note [code = 28825-3] Goal Plan of Care Note [code = 98417-9] Goal Plan of Care Note [code = 60120-0] Goal Plan of Care Note [code = 86683-7] Goal Plan of Care Note [code = 09992-0] Goal Plan of Care Note [code = 02962-6] Goal Plan of Care Note [code = 85805-7] Goal Plan of Care Note [code = 26089-2] Goal Plan of Care Note [code = 78635-0] Goal Plan of Care Note [code = 27310-8] Goal Plan of Care Note [code = 25897-4] Goal Plan of Care Note [code = 09936-7] Goal Plan of Care Note [code = 26900-1] Goal Plan of Care Note [code = 97154-2] Goal Plan of Care Note [code = 05102-2] Goal Plan of Care Note [code = 14874-9] Goal Plan of Care Note [code = 37464-1] Goal Plan of Care Note [code = 03382-8] Goal Plan of Care Note [code = 79182-0] Goal Plan of Care Note [code = 97635-1] Goal Plan of Care Note [code = 43040-6] Goal Plan of Care Note [code = 90368-9] Goal Plan of Care Note [code = 35809-5] Goal Plan of Care Note [code = 66709-3] Goal Plan of Care Note [code = 47615-8] Goal Plan of Care Note [code = 30364-7] Goal Plan of Care Note [code = 77211-0] Goal Plan of Care Note [code = 46771-8] Goal Plan of Care Note [code = 95216-0] Goal Plan of Care Note [code = 03412-4] Goal Plan of Care Note [code = 29025-2] Goal Plan of Care Note [code = 11567-8] Goal Plan of Care Note [code = 90697-0] Goal Plan of Care Note [code = 68493-8] Goal Plan of Care Note [code = 98522-8] Goal Plan of Care Note [code = 16172-0] Goal Plan of Care Note [code = 55692-8] Goal Plan of Care Note [code = 33369-9] Goal Plan of Care Note [code = 92693-3] Goal Plan of Care Note [code = 42922-0] Goal Plan of Care Note [code = 39429-3] Goal Plan of Care Note [code = 16903-5] Goal Plan of Care Note [code = 61005-6] Goal Plan of Care Note [code = 85494-4] Goal Plan of Care Note [code = 44672-8] Goal Plan of Care Note [code = 18298-3] Goal Plan of Care Note [code = 51350-5] Goal Plan of Care Note [code = 55621-2] Goal Plan of Care Note [code = 69866-5] Goal Plan of Care Note [code = 68023-5] Goal Plan of Care Note [code = 33631-2] Goal Plan of Care Note [code = 33607-7] Goal Plan of Care Note [code = 76260-5] Goal Plan of Care Note [code = 50677-4] Goal Plan of Care Note [code = 14445-4] Goal Plan of Care Note [code = 81737-5] Goal Plan of Care Note [code = 49555-4] Goal Plan of Care Note [code = 66998-4] Goal Plan of Care Note [code = 30921-5] Goal Plan of Care Note [code = 31858-0] Goal Plan of Care Note [code = 67526-0] Goal Plan of Care Note [code = 57596-3] Goal Plan of Care Note [code = 11278-5] Goal Plan of Care Note [code = 61399-9] Goal Plan of Care Note [code = 85366-2] Goal Plan of Care Note [code = 05730-6] Goal Plan of Care Note [code = 70316-9] Goal Plan of Care Note [code = 31611-6] Goal Plan of Care Note [code = 88743-9] Goal Plan of Care Note [code = 63539-5] Goal Plan of Care Note [code = 27929-1] Goal Plan of Care Note [code = 32742-9] Goal Plan of Care Note [code = 15638-7] Goal Plan of Care Note [code = 03991-8] Goal Plan of Care Note [code = 11111-7] Goal Plan of Care Note [code = 89007-6] Goal Plan of Care Note [code = 16760-9] Goal Plan of Care Note [code = 33897-1] Goal Plan of Care Note [code = 47645-3] Goal Plan of Care Note [code = 14811-7] Goal Plan of Care Note [code = 43386-7] Goal Plan of Care Note [code = 57587-2] Goal Plan of Care Note [code = 03970-9] Goal Plan of Care Note [code = 65633-0] Goal Plan of Care Note [code = 61571-4] Goal Plan of Care Note [code = 88225-3] Goal Plan of Care Note [code = 05704-2] Goal Plan of Care Note [code = 27221-6] Goal Plan of Care Note [code = 25825-0] Goal Plan of Care Note [code = 89527-6] Goal Plan of Care Note [code = 41067-9] Goal Plan of Care Note [code = 81664-9] Goal Plan of Care Note [code = 45383-6] Goal Plan of Care Note [code = 36669-4] Goal Plan of Care Note [code = 98150-5] Goal Plan of Care Note [code = 52516-2] Goal Plan of Care Note [code = 19693-9] Goal Plan of Care Note [code = 25438-6] Goal Plan of Care Note [code = 15419-0] Goal Plan of Care Note [code = 90160-8] Goal Plan of Care Note [code = 89203-8] Goal Plan of Care Note [code = 26368-1] Goal Plan of Care Note [code = 77211-0] Goal Plan of Care Note [code = 62333-1] Goal Plan of Care Note [code = 34826-2] Goal Plan of Care Note [code = 64834-2] Goal Plan of Care Note [code = 60512-0] Goal Plan of Care Note [code = 74842-0] Goal Plan of Care Note [code = 62113-6] Goal Plan of Care Note [code = 58739-8] Encounters Start End Encounter Admission Attending Care Care Encounter Source Date/Time Date/Time Type Type Clinicians Facility Department ID 2022-10-01 2022-10-01 Outpatient SFA SFA [id number] [place] 08:33:17 08:33:17 0214 F [facility] 2022-07-18 2022-07-18 Outpatient SFA SFA [id number] [facility] 16:14:52 16:14:52 1201 F [facility] 2022-06-21 2022-06-21 Outpatient SFA SFA [id number] 022 [place] 09:09:58 09:09:58 1104 F [facility] 2022-06-17 2022-06-17 Outpatient SFA SFA [id number] 022 [facility] 16:49:09 16:49:09 1031 F [facility] 2022-06-17 2022-06-17 Outpatient [id number] y29m51-9 00:00:00 00:00:00 Visit 704a-4f8d 04a-4f8d-b -baa5-c57 aa5-h23396 7131a75gj 6c72cc 2022-04-04 2022-04-04 Outpatient [id number] [id number] 00:00:00 00:00:00 Visit 3626-4e62 626-4e62-8 -8840-a5d 840-a5d5e1 6o1189dt9 223db2 2022-03-25 2022-03-25 Outpatient [id number]- [id number] a0 26kc16-m 00:00:00 00:00:00 Visit a557-5ms0 513-4ce9-b -f120-3s1 507-5f3164 4895dnp7e 7ade0e 2022 2022 Outpatient [id number] a8 478379-7 00:00:00 00:00:00 Visit 3982-2439 680-4716-9 -907f-ab4 07f-ab48fe 3zi02za56 14ca04 2020-06-01 2020-06-01 PAIN IN 3 WHITE, [facility] [id number] [facility] 15:48:00 23:59:00 RIGHT HIP [facility] [address] [place] [address] ([address], V[address]SA) [place] [address] Results Test Description Test Time Test Comments Results Result Comments Source TSH, THIRD GENERATION 2022-10-02 05:46:29 Test Item Value Reference Range Interpretation Comme nts TSH, THIRD GENERATION 1.240 UIU/ML 0.400-4.[address] has important pathology (test code = 2821) staff harika mccormick effective 10/16/2022. New patholo gy staff will provide uninter rupted, excellent patient care an d clinical consultation. S ee URL: [email or web address]. UNLESS OTHERWIS E INDICATED, ALL TESTING PERFORM ED AT [facility]ICAL [facility] [address] [place], [place] CLIA: [id number], CAP : [id number] LIPID [id number] 05:03:02 Test Item Value Reference Range Interpretation Comments CHOLESTEROL (test 206 MG/DL <200 H code = 2210) TRIGLYCERIDES (test 374 MG/DL <150 H code = 2232) HDL CHOLESTEROL (test 50 MG/DL >39 code = 2220) CALC LDL CHOL (test 106 MG/DL <100 H NOTE: C ALCULATED LDL code = 2237) IS BASED ON SILAS-KIM METHOD WHICHINCLUDES ADJUSTABLE TRIGLYCERIDE:VL DL CHOLESTEROL RAT IO.THIS FACTOR VARIES B Y MEASURED TRIGLY CERIDE AND NON-HDLCHOL ESTEROL CONCENTRATIONS WITH INCREASED CALCU LATED LDL SEENIN HIGH ER TRIGLYCERIDE OR LOWER NON-HDL SPECIME NS. FOR MOREINFORMATION , SEE CLIENT ANNOUNCE MENT AT [email or web address] [email or web address] RATIO LDL/HDL 2.12 RATIO <3.22 (test code = 2238) COMPREHENSIVE METABOLIC [id number] 05:03:02 Test Item Value Reference Range Interpretation Comments GLUCOSE (test code = 232 MG/DL 70-99 H 2216) BUN (test code = 13 MG/DL 6-20 2207) CREATININE (test 0.64 MG/DL 0.60-1.30 code = 221) eGFR (2020 CKD-EPI) 102 >60 (test code = 38464) ML/MIN/1.73 CALC BUN/CREAT (test 20 RATIO 6-28 code = 2235) SODIUM (test code = 139 MEQ/L 660-190 9876) POTASSIUM (test code 4.6 MEQ/L 3.5-5.4 = 2227) CHLORIDE (test code 100 MEQ/L 95-107 = 2214) CARBON DIOXIDE (test 25 MEQ/L 19-31 code = 2206) CALCIUM (test code = 9.9 MG/DL 8.5-10.5 2208) PROTEIN, TOTAL (test 8.3 G/DL 6.1-8.3 code = 222) ALBUMIN (test code = 4.7 G/DL 3.5-5.2 2200) CALC GLOBULIN (test 3.6 G/DL 1.9-3.7 code = 2240) CALC A/G RATIO (test 1.3 RATIO 1.0-2.6 code = 2234) BILIRUBIN, TOTAL 0.3 MG/DL See_Comment [Automated message] (test code = 2207) The syste m which generated this result transmit adin reference range : <=1.2. The refe rence range was not u sed to interpret th is result as normal/abnormal . ALKALINE PHOSPHATASE 115 U/L 40-136 (test code = 2203) AST (test code = 11 U/L 9-40 2217) ALT (test code = 16 U/L 40 2218) HEMOGLOBIN [id number] 03:25:31 Test Item Value Reference Range Interpretation Comments HEMOGLOBIN A1c (test 9.5 % 4.2-5.6 H [employer] DIABETES code = 60134) ASSOCIATION [employer] FOR HGB A1C: PREDIABETES/INC REASED RISK . . . . . . . 5.7 -6.4% DIAGNOSIS OF DI ABETES . . . . . . . . . >=6 .5% WITH CONFIRMATION OR APPROPRIATE SYMPTOMS NOTE: ASSAY MAY BE AFFECTED BY HEMOGLOBINOPATH IES (SICKLE CELL ANEMIA, S- C DISEASE, OTHERS) OR EZEQUIEL FICIALLY LOWERED BY DECR EASED RED CELL SURVIVAL ( HEMOLYTIC ANEMIAS, BLOOD LOSS, ETC.). CONSIDER ALTERN ATE TESTING OR LABORATORY C ONSULTATION. VITAMIN [id number] 06:53:17 Test Item Value Reference Range Interpretation Comments VITAMIN B-12 (test code = 2840) <150 PG/ML 200-950 L TSH, THIRD [id number] 06:53:17 Test Item Value Reference Range Interpretation Comments TSH, THIRD 0.602 UIU/ML 0.400-4.100 UNLESS OTHERWI SE GENERATION (test INDICATED, ALL TESTING code = 2821) PERFORMED [facility] [address] DIRECTOR: KELSEY VARNER M.D. CLIA NUMBER [id number] CAP ACCREDITATION N O. [id number] HEMOGLOBIN [id number] 04:27:23 Test Item Value Reference Range Interpretation Comments HEMOGLOBIN A1c (test 9.2 % 4.2-5.6 H [employer] CAN [employer]AB[employer]ES code = 90572) ASSOCIATION [employer]LIN[employer] FOR HGB A1C: PREDIABETES/INC REASED RISK . . . . . . . 5.7 -6.4% DIAGNOSIS OF DI ABETES . . . . . . . . . >=6 .5% WITH CONFIRMATION OR APPROPRIATE SYMPTOMS NOTE: ASSAY MAY BE AFFECTED BY HEMOGLOBINOPATH IES (SICKLE CELL ANEMIA, S- C DISEASE, OTHERS) OR EZEQUIEL FICIALLY LOWERED BY DECR EASED RED CELL SURVIVAL ( HEMOLYTIC ANEMIAS, BLOOD LOSS, ETC.). CONSIDER ALTERN ATE TESTING OR LABORATORY C ONSULTATION. COMPREHENSIVE METABOLIC [id number] 04:21:54 Test Item Value Reference Range Interpretation Comments GLUCOSE (test code = 247 MG/DL 70-99 H 2216) BUN (test code = 16 MG/DL 6-20 2207) CREATININE (test 0.55 MG/DL 0.60-1.30 L code = 2214) eGFR (2020 CKD-EPI) 106 >60 (test code = 27282) ML/MIN/1.73 CALC BUN/CREAT (test 29 RATIO 6-28 H code = 2235) SODIUM (test code = 139 MEQ/L 380-118 5337) POTASSIUM (test code 4.5 MEQ/L 3.5-5.4 = 2227) CHLORIDE (test code 101 MEQ/L 95-107 = 2214) CARBON DIOXIDE (test 25 MEQ/L 19-31 code = 220) CALCIUM (test code = 10.0 MG/DL 8.5-10.5 2208) PROTEIN, TOTAL (test 7.8 G/DL 6.1-8.3 code = 222) ALBUMIN (test code = 4.3 G/DL 3.5-5.2 2200) CALC GLOBULIN (test 3.5 G/DL 1.9-3.7 code = 224) CALC A/G RATIO (test 1.2 RATIO 1.0-2.6 code = 223) BILIRUBIN, TOTAL 0.4 MG/DL See_Comment [Automated message] (test code = 220) The syste m which generated this result transmit adin reference range : <=1.2. The refe rence range was not u sed to interpret th is result as normal/abnormal . ALKALINE PHOSPHATASE 103 U/L 40-136 (test code = 2204) AST (test code = 13 U/L 9-40 2217) ALT (test code = 15 U/L 5-40 2218) LIPID [id number] 04:21:54 Test Item Value Reference Range Interpretation Comments CHOLESTEROL (test 174 MG/DL <200 code = 2210) TRIGLYCERIDES (test 267 MG/DL <150 H code = 2232) HDL CHOLESTEROL (test 50 MG/DL >39 code = 2220) CALC LDL CHOL (test 89 MG/DL <100 NOTE: C ALCULATED LDL code = 2237) IS BASED ON SILAS-KIM METHOD WHICHINCLUDES ADJUSTABLE TRIGLYCERIDE:VL DL CHOLESTEROL RAT IO.THIS FACTOR VARIES B Y MEASURED TRIGLY CERIDE AND NON-HDLCHOL ESTEROL CONCENTRATIONS WITH INCREASED CALCU LATED LDL SEENIN HIGH ER TRIGLYCERIDE OR LOWER NON-HDL SPECIME NS. FOR MOREINFORMATION , SEE CLIENT ANNOUNCE MENT AT [email or web address] [email or web address] RATIO LDL/HDL 1.78 RATIO <3.22 (test code = 2238) COMPREHENSIVE METABOLIC [id number] 00:00:00 Test Item Value Reference Range Interpretation Comments GLUCOSE (test code = 2217) 247 MG/DL BUN (test code = 2208) 16 MG/DL CREATININE (test code = 2214) 0.55 MG/DL eGFR (2020 CKD-EPI) (test 106 ML/MIN/1.73 code = 87210) CALC BUN/CREAT (test code = 29 RATIO 2235) SODIUM (test code = 2231) 139 MEQ/L POTASSIUM (test code = 2228) 4.5 MEQ/L CHLORIDE (test code = 2215) 101 MEQ/L CARBON DIOXIDE (test code = 25 MEQ/L 2205) CALCIUM (test code = 2209) 10.0 MG/DL PROTEIN, TOTAL (test code = 7.8 G/DL 2228) ALBUMIN (test code = 2201) 4.3 G/DL CALC GLOBULIN (test code = 3.5 G/DL 0) CALC A/G RATIO (test code = 1.2 RATIO 2233) BILIRUBIN, TOTAL (test code = 0.4 MG/DL 2206) ALKALINE PHOSPHATASE (test 103 U/L code = 2204) AST (test code = 2218) 13 U/L ALT (test code = 2219) 15 U/L COMPREHENSIVE METABOLIC [id number] 00:00:00 Test Item Value Reference Range Interpretation Comments GLUCOSE (test code = 2217) 247 MG/DL BUN (test code = 2208) 16 MG/DL CREATININE (test code = 2214) 0.55 MG/DL eGFR (2020 CKD-EPI) (test 106 ML/MIN/1.73 code = 81459) CALC BUN/CREAT (test code = 29 RATIO 2235) SODIUM (test code = 2231) 139 MEQ/L POTASSIUM (test code = 2228) 4.5 MEQ/L CHLORIDE (test code = 2215) 101 MEQ/L CARBON DIOXIDE (test code = 25 MEQ/L 2205) CALCIUM (test code = 2209) 10.0 MG/DL PROTEIN, TOTAL (test code = 7.8 G/DL 2228) ALBUMIN (test code = 2201) 4.3 G/DL CALC GLOBULIN (test code = 3.5 G/DL 2240) CALC A/G RATIO (test code = 1.2 RATIO 2234) BILIRUBIN, TOTAL (test code = 0.4 MG/DL 2206) ALKALINE PHOSPHATASE (test 103 U/L code = 2204) AST (test code = 2218) 13 U/L ALT (test code = 2219) 15 U/L LIPID [id number] 00:00:00 Test Item Value Reference Range Interpretation Comments CHOLESTEROL (test code = 2210) 174 MG/DL TRIGLYCERIDES (test code = 2232) 267 MG/DL HDL CHOLESTEROL (test code = 2220) 50 MG/DL CALC LDL CHOL (test code = 2237) 89 MG/DL RISK RATIO LDL/HDL (test code = 1.78 RATIO 2238) LIPID [id number] 00:00:00 Test Item Value Reference Range Interpretation Comments CHOLESTEROL (test code = 2210) 174 MG/DL TRIGLYCERIDES (test code = 2232) 267 MG/DL HDL CHOLESTEROL (test code = 2220) 50 MG/DL CALC LDL CHOL (test code = 2237) 89 MG/DL RISK RATIO LDL/HDL (test code = 1.78 RATIO 2238) HEMOGLOBIN [id number] 00:00:00 Test Item Value Reference Range Interpretation Comments HEMOGLOBIN A1c (test code = 17343) 9.2 % HEMOGLOBIN [id number] 00:00:00 Test Item Value Reference Range Interpretation Comments HEMOGLOBIN A1c (test code = 83431) 9.2 % HEMOGLOBIN [id number] 00:00:00 Test Item Value Reference Range Interpretation Comments HEMOGLOBIN A1c (test code = 61143) 9.2 % VITAMIN [id number] 00:00:00 Test Item Value Reference Range Interpretation Comments VITAMIN B-12 (test code = 2840) <150 PG/ML VITAMIN [id number] 00:00:00 Test Item Value Reference Range Interpretation Comments VITAMIN B-12 (test code = 2840) <150 PG/ML VITAMIN [id number] 00:00:00 Test Item Value Reference Range Interpretation Comments VITAMIN B-12 (test code = 2840) <150 PG/ML [id number] 00:00:00 Test Item Value Reference Range Interpretation Comments TSH, THIRD GENERATION (test code 0.602 UIU/ML = 2821) [id number] 00:00:00 Test Item Value Reference Range Interpretation Comments TSH, THIRD GENERATION (test code 0.602 UIU/ML = 2821) [id number] 00:00:00 Test Item Value Reference Range Interpretation Comments TSH, THIRD GENERATION (test code 0.602 UIU/ML = 2821) COMPREHENSIVE METABOLIC [id number] 00:00:00 Test Item Value Reference Range Interpretation Comments GLUCOSE (test code = 2217) 247 MG/DL BUN (test code = 2208) 16 MG/DL CREATININE (test code = 2214) 0.55 MG/DL eGFR (2020 CKD-EPI) (test 106 ML/MIN/1.73 code = 47270) CALC BUN/CREAT (test code = 29 RATIO 2235) SODIUM (test code = 2231) 139 MEQ/L POTASSIUM (test code = 2228) 4.5 MEQ/L CHLORIDE (test code = 2215) 101 MEQ/L CARBON DIOXIDE (test code = 25 MEQ/L 2205) CALCIUM (test code = 2209) 10.0 MG/DL PROTEIN, TOTAL (test code = 7.8 G/DL 2228) ALBUMIN (test code = 2201) 4.3 G/DL CALC GLOBULIN (test code = 3.5 G/DL 2240) CALC A/G RATIO (test code = 1.2 RATIO 4) BILIRUBIN, TOTAL (test code = 0.4 MG/DL 2206) ALKALINE PHOSPHATASE (test 103 U/L code = 2204) AST (test code = 2218) 13 U/L ALT (test code = 2219) 15 U/L COMPREHENSIVE METABOLIC [id number] 00:00:00 Test Item Value Reference Range Interpretation Comments GLUCOSE (test code = 2217) 247 MG/DL BUN (test code = 2208) 16 MG/DL CREATININE (test code = 2214) 0.55 MG/DL eGFR (2020 CKD-EPI) (test 106 ML/MIN/1.73 code = 86827) CALC BUN/CREAT (test code = 29 RATIO 2235) SODIUM (test code = 2231) 139 MEQ/L POTASSIUM (test code = 2228) 4.5 MEQ/L CHLORIDE (test code = 2215) 101 MEQ/L CARBON DIOXIDE (test code = 25 MEQ/L 2205) CALCIUM (test code = 2209) 10.0 MG/DL PROTEIN, TOTAL (test code = 7.8 G/DL 2228) ALBUMIN (test code = 2201) 4.3 G/DL CALC GLOBULIN (test code = 3.5 G/DL 2239) CALC A/G RATIO (test code = 1.2 RATIO 4) BILIRUBIN, TOTAL (test code = 0.4 MG/DL 2206) ALKALINE PHOSPHATASE (test 103 U/L code = 2204) AST (test code = 2218) 13 U/L ALT (test code = 2219) 15 U/L LIPID [id number] 00:00:00 Test Item Value Reference Range Interpretation Comments CHOLESTEROL (test code = 2210) 174 MG/DL TRIGLYCERIDES (test code = 2232) 267 MG/DL HDL CHOLESTEROL (test code = 2220) 50 MG/DL CALC LDL CHOL (test code = 2237) 89 MG/DL RISK RATIO LDL/HDL (test code = 1.78 RATIO 2238) LIPID [id number] 00:00:00 Test Item Value Reference Range Interpretation Comments CHOLESTEROL (test code = 2210) 174 MG/DL TRIGLYCERIDES (test code = 2232) 267 MG/DL HDL CHOLESTEROL (test code = 2220) 50 MG/DL CALC LDL CHOL (test code = 2237) 89 MG/DL RISK RATIO LDL/HDL (test code = 1.78 RATIO 2238) HEMOGLOBIN [id number] 00:00:00 Test Item Value Reference Range Interpretation Comments HEMOGLOBIN A1c (test code = 67479) 9.2 % HEMOGLOBIN [id number] 00:00:00 Test Item Value Reference Range Interpretation Comments HEMOGLOBIN A1c (test code = 69476) 9.2 % HEMOGLOBIN [id number] 00:00:00 Test Item Value Reference Range Interpretation Comments HEMOGLOBIN A1c (test code = 66830) 9.2 % VITAMIN [id number] 00:00:00 Test Item Value Reference Range Interpretation Comments VITAMIN B-12 (test code = 2840) <150 PG/ML VITAMIN [id number] 00:00:00 Test Item Value Reference Range Interpretation Comments VITAMIN B-12 (test code = 2840) <150 PG/ML VITAMIN [id number] 00:00:00 Test Item Value Reference Range Interpretation Comments VITAMIN B-12 (test code = 2840) <150 PG/ML [id number] 00:00:00 Test Item Value Reference Range Interpretation Comments TSH, THIRD GENERATION (test code 0.602 UIU/ML = 2821) [id number] 00:00:00 Test Item Value Reference Range Interpretation Comments TSH, THIRD GENERATION (test code 0.602 UIU/ML = 2821) [id number] 00:00:00 Test Item Value Reference Range Interpretation Comments TSH, THIRD GENERATION (test code 0.602 UIU/ML = 2821) COMPREHENSIVE METABOLIC [id number] 00:00:00 Test Item Value Reference Range Interpretation Comments GLUCOSE (test code = 2217) 247 MG/DL BUN (test code = 2208) 16 MG/DL CREATININE (test code = 2214) 0.55 MG/DL eGFR (2020 CKD-EPI) (test 106 ML/MIN/1.73 code = 80031) CALC BUN/CREAT (test code = 29 RATIO 5) SODIUM (test code = 2231) 139 MEQ/L POTASSIUM (test code = 2228) 4.5 MEQ/L CHLORIDE (test code = 2215) 101 MEQ/L CARBON DIOXIDE (test code = 25 MEQ/L 2205) CALCIUM (test code = 2209) 10.0 MG/DL PROTEIN, TOTAL (test code = 7.8 G/DL 2228) ALBUMIN (test code = 2201) 4.3 G/DL CALC GLOBULIN (test code = 3.5 G/DL 0) CALC A/G RATIO (test code = 1.2 RATIO 2233) BILIRUBIN, TOTAL (test code = 0.4 MG/DL 2206) ALKALINE PHOSPHATASE (test 103 U/L code = 2204) AST (test code = 2218) 13 U/L ALT (test code = 2219) 15 U/L COMPREHENSIVE METABOLIC [id number] 00:00:00 Test Item Value Reference Range Interpretation Comments GLUCOSE (test code = 2217) 247 MG/DL BUN (test code = 2208) 16 MG/DL CREATININE (test code = 2214) 0.55 MG/DL eGFR (2020 CKD-EPI) (test 106 ML/MIN/1.73 code = 00508) CALC BUN/CREAT (test code = 29 RATIO 2235) SODIUM (test code = 2231) 139 MEQ/L POTASSIUM (test code = 2228) 4.5 MEQ/L CHLORIDE (test code = 2215) 101 MEQ/L CARBON DIOXIDE (test code = 25 MEQ/L 2205) CALCIUM (test code = 2209) 10.0 MG/DL PROTEIN, TOTAL (test code = 7.8 G/DL 2228) ALBUMIN (test code = 220) 4.3 G/DL CALC GLOBULIN (test code = 3.5 G/DL 2239) CALC A/G RATIO (test code = 1.2 RATIO 2233) BILIRUBIN, TOTAL (test code = 0.4 MG/DL 2206) ALKALINE PHOSPHATASE (test 103 U/L code = 2204) AST (test code = 2218) 13 U/L ALT (test code = 2219) 15 U/L LIPID [id number] 00:00:00 Test Item Value Reference Range Interpretation Comments CHOLESTEROL (test code = 2210) 174 MG/DL TRIGLYCERIDES (test code = 2232) 267 MG/DL HDL CHOLESTEROL (test code = 2220) 50 MG/DL CALC LDL CHOL (test code = 2237) 89 MG/DL RISK RATIO LDL/HDL (test code = 1.78 RATIO 2238) LIPID [id number] 00:00:00 Test Item Value Reference Range Interpretation Comments CHOLESTEROL (test code = 2210) 174 MG/DL TRIGLYCERIDES (test code = 2232) 267 MG/DL HDL CHOLESTEROL (test code = 2220) 50 MG/DL CALC LDL CHOL (test code = 2237) 89 MG/DL RISK RATIO LDL/HDL (test code = 1.78 RATIO 2238) HEMOGLOBIN [id number] 00:00:00 Test Item Value Reference Range Interpretation Comments HEMOGLOBIN A1c (test code = 44494) 9.2 % HEMOGLOBIN [id number] 00:00:00 Test Item Value Reference Range Interpretation Comments HEMOGLOBIN A1c (test code = 13934) 9.2 % HEMOGLOBIN [id number] 00:00:00 Test Item Value Reference Range Interpretation Comments HEMOGLOBIN A1c (test code = 60164) 9.2 % VITAMIN [id number] 00:00:00 Test Item Value Reference Range Interpretation Comments VITAMIN B-12 (test code = 2840) <150 PG/ML VITAMIN [id number] 00:00:00 Test Item Value Reference Range Interpretation Comments VITAMIN B-12 (test code = 2840) <150 PG/ML VITAMIN [id number] 00:00:00 Test Item Value Reference Range Interpretation Comments VITAMIN B-12 (test code = 2840) <150 PG/ML [id number] 00:00:00 Test Item Value Reference Range Interpretation Comments TSH, THIRD GENERATION (test code 0.602 UIU/ML = 2821) [id number] 00:00:00 Test Item Value Reference Range Interpretation Comments TSH, THIRD GENERATION (test code 0.602 UIU/ML = 2821) [id number] 00:00:00 Test Item Value Reference Range Interpretation Comments TSH, THIRD GENERATION (test code 0.602 UIU/ML = 2821) HEMOGLOBIN [id number] 08:00:11 Test Item Value Reference Range Interpretation Comments HEMOGLOBIN A1c (test 8.8 % 4.2-5.6 H AMERIC AN DIABETES code = 12237) ASSOCIATION IDELINES FOR HGB A1C: PREDIABETES/INC REASED RISK . . . . . . . 5.7 -6.4% DIAGNOSIS OF DI ABETES . . . . . . . . . >=6 .5% WITH CONFIRMATION OR APPROPRIATE SYMPTOMS NOTE: ASSAY MAY BE AFFECTED BY HEMOGLOBINOPATH IES (SICKLE CELL ANEMIA, S- C DISEASE, OTHERS) OR EZEQUIEL FICIALLY LOWERED BY DECR EASED RED CELL SURVIVAL ( HEMOLYTIC ANEMIAS, BLOOD LOSS, ETC.). CONSIDER ALTERN ATE TESTING OR LABORATORY C ONSULTATION. TSH, THIRD [id number] 06:29:45 Test Item Value Reference Range Interpretation Comments TSH, THIRD 0.626 UIU/ML 0.400-4.100 UNLESS OTHERWI SE GENERATION (test INDICATED, ALL TESTING code = 2821) PERFORMED [facility], [facility]. [address] [place], [place] [id number] [place] [address] DIRECTOR: KELSEY VARNER M.D. SHAY NUMBER [id number] [facility] ACCREDITATION N O. [id number] LIPID [id number] 05:47:20 Test Item Value Reference Range Interpretation Comments CHOLESTEROL (test 145 MG/DL <200 code = 2210) TRIGLYCERIDES (test 230 MG/DL <150 H code = 2232) HDL CHOLESTEROL (test 47 MG/DL >39 code = 2220) CALC LDL CHOL (test 69 MG/DL <100 NOTE: C ALCULATED LDL code = 2237) IS BASED ON SILAS-KIM METHOD WHICHINCLUDES ADJUSTABLE TRIGLYCERIDE:VL DL CHOLESTEROL RAT IO.THIS FACTOR VARIES B Y MEASURED TRIGLY CERIDE AND NON-HDLCHOL ESTEROL CONCENTRATIONS WITH INCREASED CALCU LATED LDL SEENIN HIGH ER TRIGLYCERIDE OR LOWER NON-HDL SPECIME NS. FOR MOREINFORMATION , SEE CLIENT ANNOUNCE MENT AT [email or web address] [email or web address] LDL/HDL 1.47 RATIO <3.22 (test code = 2238) COMPREHENSIVE METABOLIC [id number] 05:47:20 Test Item Value Reference Range Interpretation Comments GLUCOSE (test code = 195 MG/DL 70-99 H 2216) BUN (test code = 15 MG/DL 6-20 2207) CREATININE (test 0.56 MG/DL 0.60-1.30 L code = 2214) eGFR (2020 CKD-EPI) 106 >60 (test code = 40421) ML/MIN/1.73 CALC BUN/CREAT (test 27 RATIO 6-28 code = 223) SODIUM (test code = 142 MEQ/L 197-262 2164) POTASSIUM (test code 4.3 MEQ/L 3.5-5.4 = 2227) CHLORIDE (test code 103 MEQ/L 95-107 = 2215) CARBON DIOXIDE (test 23 MEQ/L 19-31 code = 2206) CALCIUM (test code = 10.1 MG/DL 8.5-10.5 2208) PROTEIN, TOTAL (test 8.1 G/DL 6.1-8.3 code = 222) ALBUMIN (test code = 4.5 G/DL 3.5-5.2 2200) CALC GLOBULIN (test 3.6 G/DL 1.9-3.7 code = 2240) CALC A/G RATIO (test 1.3 RATIO 1.0-2.6 code = 2234) BILIRUBIN, TOTAL 0.4 MG/DL See_Comment [Automated message] (test code = 2206) The syste m which generated this result transmit adin reference range : <=1.2. The refe rence range was not u sed to interpret th is result as normal/abnormal . ALKALINE PHOSPHATASE 117 U/L 40-136 (test code = 2203) AST (test code = 16 U/L 9-40 2217) ALT (test code = 17 U/L 5-40 2218) HEMOGLOBIN [id number] 00:00:00 Test Item Value Reference Range Interpretation Comments HEMOGLOBIN A1c (test code = 98593) 8.8 % HEMOGLOBIN [id number] 00:00:00 Test Item Value Reference Range Interpretation Comments HEMOGLOBIN A1c (test code = 87530) 8.8 % LIPID [id number] 00:00:00 Test Item Value Reference Range Interpretation Comments CHOLESTEROL (test code = 2210) 145 MG/DL TRIGLYCERIDES (test code = 2232) 230 MG/DL HDL CHOLESTEROL (test code = 2220) 47 MG/DL CALC LDL CHOL (test code = 2237) 69 MG/DL RISK RATIO LDL/HDL (test code = 1.47 RATIO 2237) COMPREHENSIVE METABOLIC [id number] 00:00:00 Test Item Value Reference Range Interpretation Comments GLUCOSE (test code = 2217) 195 MG/DL BUN (test code = 2208) 15 MG/DL CREATININE (test code = 2214) 0.56 MG/DL eGFR (2020 CKD-EPI) (test 106 ML/MIN/1.73 code = 55124) CALC BUN/CREAT (test code = 27 RATIO 2235) SODIUM (test code = 2231) 142 MEQ/L POTASSIUM (test code = 2228) 4.3 MEQ/L CHLORIDE (test code = 2215) 103 MEQ/L CARBON DIOXIDE (test code = 23 MEQ/L 2205) CALCIUM (test code = 220) 10.1 MG/DL PROTEIN, TOTAL (test code = 8.1 G/DL 2228) ALBUMIN (test code = 220) 4.5 G/DL CALC GLOBULIN (test code = 3.6 G/DL 2239) CALC A/G RATIO (test code = 1.3 RATIO 2233) BILIRUBIN, TOTAL (test code = 0.4 MG/DL 2206) ALKALINE PHOSPHATASE (test 117 U/L code = 2204) AST (test code = 2218) 16 U/L ALT (test code = 2219) 17 U/L [id number] 00:00:00 Test Item Value Reference Range Interpretation Comments TSH, THIRD GENERATION (test code 0.626 UIU/ML = 2821) [id number] 00:00:00 Test Item Value Reference Range Interpretation Comments TSH, THIRD GENERATION (test code 0.626 UIU/ML = 2821) HEMOGLOBIN [id number] 00:00:00 Test Item Value Reference Range Interpretation Comments HEMOGLOBIN A1c (test code = 60234) 8.8 % HEMOGLOBIN [id number] 00:00:00 Test Item Value Reference Range Interpretation Comments HEMOGLOBIN A1c (test code = 01516) 8.8 % HEMOGLOBIN [id number] 00:00:00 Test Item Value Reference Range Interpretation Comments HEMOGLOBIN A1c (test code = 26665) 8.8 % LIPID [id number] 00:00:00 Test Item Value Reference Range Interpretation Comments CHOLESTEROL (test code = 2210) 145 MG/DL TRIGLYCERIDES (test code = 2232) 230 MG/DL HDL CHOLESTEROL (test code = 2220) 47 MG/DL CALC LDL CHOL (test code = 2237) 69 MG/DL RISK RATIO LDL/HDL (test code = 1.47 RATIO 2238) LIPID [id number] 00:00:00 Test Item Value Reference Range Interpretation Comments CHOLESTEROL (test code = 2210) 145 MG/DL TRIGLYCERIDES (test code = 2232) 230 MG/DL HDL CHOLESTEROL (test code = 2220) 47 MG/DL CALC LDL CHOL (test code = 2237) 69 MG/DL RISK RATIO LDL/HDL (test code = 1.47 RATIO 2238) COMPREHENSIVE METABOLIC [id number] 00:00:00 Test Item Value Reference Range Interpretation Comments GLUCOSE (test code = 2217) 195 MG/DL BUN (test code = 2208) 15 MG/DL CREATININE (test code = 2214) 0.56 MG/DL eGFR (2020 CKD-EPI) (test 106 ML/MIN/1.73 code = 83438) CALC BUN/CREAT (test code = 27 RATIO 2235) SODIUM (test code = 2231) 142 MEQ/L POTASSIUM (test code = 2228) 4.3 MEQ/L CHLORIDE (test code = 2215) 103 MEQ/L CARBON DIOXIDE (test code = 23 MEQ/L 220) CALCIUM (test code = 2209) 10.1 MG/DL PROTEIN, TOTAL (test code = 8.1 G/DL 222) ALBUMIN (test code = 2201) 4.5 G/DL CALC GLOBULIN (test code = 3.6 G/DL 2240) CALC A/G RATIO (test code = 1.3 RATIO 2234) BILIRUBIN, TOTAL (test code = 0.4 MG/DL 2206) ALKALINE PHOSPHATASE (test 117 U/L code = 2204) AST (test code = 2218) 16 U/L ALT (test code = 2219) 17 U/L COMPREHENSIVE METABOLIC [id number] 00:00:00 Test Item Value Reference Range Interpretation Comments GLUCOSE (test code = 2217) 195 MG/DL BUN (test code = 2208) 15 MG/DL CREATININE (test code = 2214) 0.56 MG/DL eGFR (2020 CKD-EPI) (test 106 ML/MIN/1.73 code = 22642) CALC BUN/CREAT (test code = 27 RATIO 2235) SODIUM (test code = 2231) 142 MEQ/L POTASSIUM (test code = 2228) 4.3 MEQ/L CHLORIDE (test code = 2215) 103 MEQ/L CARBON DIOXIDE (test code = 23 MEQ/L 2206) CALCIUM (test code = 2209) 10.1 MG/DL PROTEIN, TOTAL (test code = 8.1 G/DL 2228) ALBUMIN (test code = 2201) 4.5 G/DL CALC GLOBULIN (test code = 3.6 G/DL 2240) CALC A/G RATIO (test code = 1.3 RATIO 2234) BILIRUBIN, TOTAL (test code = 0.4 MG/DL 2206) ALKALINE PHOSPHATASE (test 117 U/L code = 2204) AST (test code = 2218) 16 U/L ALT (test code = 2219) 17 U/L [id number] 00:00:00 Test Item Value Reference Range Interpretation Comments TSH, THIRD GENERATION (test code 0.626 UIU/ML = 2821) [id number] 00:00:00 Test Item Value Reference Range Interpretation Comments TSH, THIRD GENERATION (test code 0.626 UIU/ML = 2821) [id number] 00:00:00 Test Item Value Reference Range Interpretation Comments TSH, THIRD GENERATION (test code 0.626 UIU/ML = 2821) HEMOGLOBIN [id number] 00:00:00 Test Item Value Reference Range Interpretation Comments HEMOGLOBIN A1c (test code = 63172) 8.8 % HEMOGLOBIN [id number] 00:00:00 Test Item Value Reference Range Interpretation Comments HEMOGLOBIN A1c (test code = 81774) 8.8 % HEMOGLOBIN [id number] 00:00:00 Test Item Value Reference Range Interpretation Comments HEMOGLOBIN A1c (test code = 30777) 8.8 % LIPID [id number] 00:00:00 Test Item Value Reference Range Interpretation Comments CHOLESTEROL (test code = 2210) 145 MG/DL TRIGLYCERIDES (test code = 2232) 230 MG/DL HDL CHOLESTEROL (test code = 2220) 47 MG/DL CALC LDL CHOL (test code = 2237) 69 MG/DL RISK RATIO LDL/HDL (test code = 1.47 RATIO 2238) LIPID [id number] 00:00:00 Test Item Value Reference Range Interpretation Comments CHOLESTEROL (test code = 2210) 145 MG/DL TRIGLYCERIDES (test code = 2232) 230 MG/DL HDL CHOLESTEROL (test code = 2220) 47 MG/DL CALC LDL CHOL (test code = 2237) 69 MG/DL RISK RATIO LDL/HDL (test code = 1.47 RATIO 2238) COMPREHENSIVE METABOLIC [id number] 00:00:00 Test Item Value Reference Range Interpretation Comments GLUCOSE (test code = 2217) 195 MG/DL BUN (test code = 2208) 15 MG/DL CREATININE (test code = 2214) 0.56 MG/DL eGFR (2020 CKD-EPI) (test 106 ML/MIN/1.73 code = 35162) CALC BUN/CREAT (test code = 27 RATIO 2235) SODIUM (test code = 2231) 142 MEQ/L POTASSIUM (test code = 2228) 4.3 MEQ/L CHLORIDE (test code = 2215) 103 MEQ/L CARBON DIOXIDE (test code = 23 MEQ/L 2205) CALCIUM (test code = 2209) 10.1 MG/DL PROTEIN, TOTAL (test code = 8.1 G/DL 2228) ALBUMIN (test code = 2201) 4.5 G/DL CALC GLOBULIN (test code = 3.6 G/DL 2240) CALC A/G RATIO (test code = 1.3 RATIO 2234) BILIRUBIN, TOTAL (test code = 0.4 MG/DL 2206) ALKALINE PHOSPHATASE (test 117 U/L code = 2204) AST (test code = 2218) 16 U/L ALT (test code = 2219) 17 U/L COMPREHENSIVE METABOLIC [id number] 00:00:00 Test Item Value Reference Range Interpretation Comments GLUCOSE (test code = 2217) 195 MG/DL BUN (test code = 2208) 15 MG/DL CREATININE (test code = 2214) 0.56 MG/DL eGFR (2020 CKD-EPI) (test 106 ML/MIN/1.73 code = 21371) CALC BUN/CREAT (test code = 27 RATIO 2235) SODIUM (test code = 2231) 142 MEQ/L POTASSIUM (test code = 2228) 4.3 MEQ/L CHLORIDE (test code = 2215) 103 MEQ/L CARBON DIOXIDE (test code = 23 MEQ/L 2205) CALCIUM (test code = 2209) 10.1 MG/DL PROTEIN, TOTAL (test code = 8.1 G/DL 2228) ALBUMIN (test code = 2201) 4.5 G/DL CALC GLOBULIN (test code = 3.6 G/DL 2240) CALC A/G RATIO (test code = 1.3 RATIO 2234) BILIRUBIN, TOTAL (test code = 0.4 MG/DL 2206) ALKALINE PHOSPHATASE (test 117 U/L code = 2204) AST (test code = 2218) 16 U/L ALT (test code = 2219) 17 U/L [id number] 00:00:00 Test Item Value Reference Range Interpretation Comments TSH, THIRD GENERATION (test code 0.626 UIU/ML = 2821) [id number] 00:00:00 Test Item Value Reference Range Interpretation Comments TSH, THIRD GENERATION (test code 0.626 UIU/ML = 2821) [id number] 00:00:00 Test Item Value Reference Range Interpretation Comments TSH, THIRD GENERATION (test code 0.626 UIU/ML = 2821) HEMOGLOBIN [id number] 00:00:00 Test Item Value Reference Range Interpretation Comments HEMOGLOBIN A1c (test code = 19388) 8.8 % HEMOGLOBIN [id number] 00:00:00 Test Item Value Reference Range Interpretation Comments HEMOGLOBIN A1c (test code = 03542) 8.8 % HEMOGLOBIN [id number] 00:00:00 Test Item Value Reference Range Interpretation Comments HEMOGLOBIN A1c (test code = 51886) 8.8 % LIPID [id number] 00:00:00 Test Item Value Reference Range Interpretation Comments CHOLESTEROL (test code = 2210) 145 MG/DL TRIGLYCERIDES (test code = 2232) 230 MG/DL HDL CHOLESTEROL (test code = 2220) 47 MG/DL CALC LDL CHOL (test code = 2237) 69 MG/DL RISK RATIO LDL/HDL (test code = 1.47 RATIO 2238) LIPID [id number] 00:00:00 Test Item Value Reference Range Interpretation Comments CHOLESTEROL (test code = 2210) 145 MG/DL TRIGLYCERIDES (test code = 2232) 230 MG/DL HDL CHOLESTEROL (test code = 2220) 47 MG/DL CALC LDL CHOL (test code = 2237) 69 MG/DL RISK RATIO LDL/HDL (test code = 1.47 RATIO 2238) COMPREHENSIVE METABOLIC [id number] 00:00:00 Test Item Value Reference Range Interpretation Comments GLUCOSE (test code = 2217) 195 MG/DL BUN (test code = 2208) 15 MG/DL CREATININE (test code = 2214) 0.56 MG/DL eGFR (2020 CKD-EPI) (test 106 ML/MIN/1.73 code = 90900) CALC BUN/CREAT (test code = 27 RATIO 2235) SODIUM (test code = 2231) 142 MEQ/L POTASSIUM (test code = 2228) 4.3 MEQ/L CHLORIDE (test code = 2215) 103 MEQ/L CARBON DIOXIDE (test code = 23 MEQ/L 2205) CALCIUM (test code = 2209) 10.1 MG/DL PROTEIN, TOTAL (test code = 8.1 G/DL 2228) ALBUMIN (test code = 2201) 4.5 G/DL CALC GLOBULIN (test code = 3.6 G/DL 2239) CALC A/G RATIO (test code = 1.3 RATIO 2234) BILIRUBIN, TOTAL (test code = 0.4 MG/DL 2206) ALKALINE PHOSPHATASE (test 117 U/L code = 2204) AST (test code = 2218) 16 U/L ALT (test code = 2219) 17 U/L COMPREHENSIVE METABOLIC [id number] 00:00:00 Test Item Value Reference Range Interpretation Comments GLUCOSE (test code = 2217) 195 MG/DL BUN (test code = 2208) 15 MG/DL CREATININE (test code = 2214) 0.56 MG/DL eGFR (2020 CKD-EPI) (test 106 ML/MIN/1.73 code = 28946) CALC BUN/CREAT (test code = 27 RATIO 2235) SODIUM (test code = 2231) 142 MEQ/L POTASSIUM (test code = 2228) 4.3 MEQ/L CHLORIDE (test code = 2215) 103 MEQ/L CARBON DIOXIDE (test code = 23 MEQ/L 2205) CALCIUM (test code = 2209) 10.1 MG/DL PROTEIN, TOTAL (test code = 8.1 G/DL 2228) ALBUMIN (test code = 2201) 4.5 G/DL CALC GLOBULIN (test code = 3.6 G/DL 2240) CALC A/G RATIO (test code = 1.3 RATIO 2234) BILIRUBIN, TOTAL (test code = 0.4 MG/DL 2206) ALKALINE PHOSPHATASE (test 117 U/L code = 2204) AST (test code = 2218) 16 U/L ALT (test code = 2219) 17 U/L [id number] 00:00:00 Test Item Value Reference Range Interpretation Comments TSH, THIRD GENERATION (test code 0.626 UIU/ML = 2821) [id number] 00:00:00 Test Item Value Reference Range Interpretation Comments TSH, THIRD GENERATION (test code 0.626 UIU/ML = 2821) [id number] 00:00:00 Test Item Value Reference Range Interpretation Comments TSH, THIRD GENERATION (test code 0.626 UIU/ML = 2821) COMPLEMENT [id number] 00:00:00 Test Item Value Reference Range Interpretation Comments COMPLEMENT C3 (test code = 3509) 172 MG/DL COMPLEMENT [id number] 00:00:00 Test Item Value Reference Range Interpretation Comments COMPLEMENT C4 (test code = 3510) 29 MG/DL DNA DS [id number] 00:00:00 Test Item Value Reference Range Interpretation Comments dsDNA ANTIBODY (test code = 4287) <1.0 IU/ML COMPLEMENT [id number] 00:00:00 Test Item Value Reference Range Interpretation Comments COMPLEMENT C3 (test code = 3509) 172 MG/DL COMPLEMENT [id number] 00:00:00 Test Item Value Reference Range Interpretation Comments COMPLEMENT C3 (test code = 3509) 172 MG/DL COMPLEMENT [id number] 00:00:00 Test Item Value Reference Range Interpretation Comments COMPLEMENT C4 (test code = 3510) 29 MG/DL COMPLEMENT [id number] 00:00:00 Test Item Value Reference Range Interpretation Comments COMPLEMENT C4 (test code = 3510) 29 MG/DL DNA DS [id number] 00:00:00 Test Item Value Reference Range Interpretation Comments dsDNA ANTIBODY (test code = 4287) <1.0 IU/ML DNA DS [id number] 00:00:00 Test Item Value Reference Range Interpretation Comments dsDNA ANTIBODY (test code = 4287) <1.0 IU/ML COMPLEMENT [id number] 00:00:00 Test Item Value Reference Range Interpretation Comments COMPLEMENT C3 (test code = 3509) 172 MG/DL COMPLEMENT [id number] 00:00:00 Test Item Value Reference Range Interpretation Comments COMPLEMENT C3 (test code = 3509) 172 MG/DL COMPLEMENT [id number] 00:00:00 Test Item Value Reference Range Interpretation Comments COMPLEMENT C4 (test code = 3510) 29 MG/DL COMPLEMENT [id number] 00:00:00 Test Item Value Reference Range Interpretation Comments COMPLEMENT C4 (test code = 3510) 29 MG/DL DNA DS [id number] 00:00:00 Test Item Value Reference Range Interpretation Comments dsDNA ANTIBODY (test code = 4287) <1.0 IU/ML DNA DS [id number] 00:00:00 Test Item Value Reference Range Interpretation Comments dsDNA ANTIBODY (test code = 4287) <1.0 IU/ML COMPLEMENT [id number] 00:00:00 Test Item Value Reference Range Interpretation Comments COMPLEMENT C3 (test code = 3509) 172 MG/DL COMPLEMENT [id number] 00:00:00 Test Item Value Reference Range Interpretation Comments COMPLEMENT C3 (test code = 3509) 172 MG/DL COMPLEMENT [id number] 00:00:00 Test Item Value Reference Range Interpretation Comments COMPLEMENT C4 (test code = 3510) 29 MG/DL COMPLEMENT [id number] 00:00:00 Test Item Value Reference Range Interpretation Comments COMPLEMENT C4 (test code = 3510) 29 MG/DL DNA DS [id number] 00:00:00 Test Item Value Reference Range Interpretation Comments dsDNA ANTIBODY (test code = 4287) <1.0 IU/ML DNA DS [id number] 00:00:00 Test Item Value Reference Range Interpretation Comments dsDNA ANTIBODY (test code = 4287) <1.0 IU/ML EZRA TITER AND PATTERN [REFLEX]2021-06-29 00:00:00 Test Item Value Reference Range Interpretation Comments PATTERN (test code = HOMOGENEOUS 45523) EZRA TITER (test code = 1:160 TITER 3550) PATTERN 2 (test code = NOT DETECTED 21979) EZRA TITER 2 (test code = NOT DETECTED TITER 70417) PATTERN 3 (test code = NOT DETECTED 43327) EZRA TITER 3 (test code = NOT DETECTED TITER 89978) METHOD (test code = 03824) (NOTE) EZRA TITER AND PATTERN [REFLEX]2021-06-29 00:00:00 Test Item Value Reference Range Interpretation Comments PATTERN (test code = HOMOGENEOUS 43749) EZRA TITER (test code = 1:160 TITER 3550) PATTERN 2 (test code = NOT DETECTED 36706) EZRA TITER 2 (test code = NOT DETECTED TITER 17389) PATTERN 3 (test code = NOT DETECTED 78666) EZRA TITER 3 (test code = NOT DETECTED TITER 14614) METHOD (test code = 73569) (NOTE) EZRA TITER AND PATTERN [REFLEX]2021-06-29 00:00:00 Test Item Value Reference Range Interpretation Comments PATTERN (test code = HOMOGENEOUS 46520) EZRA TITER (test code = 1:160 TITER 3550) PATTERN 2 (test code = NOT DETECTED 31899) EZRA TITER 2 (test code = NOT DETECTED TITER 95169) PATTERN 3 (test code = NOT DETECTED 30480) EZRA TITER 3 (test code = NOT DETECTED TITER 09014) METHOD (test code = 76418) (NOTE) EZRA TITER AND PATTERN [REFLEX]2021-06-29 00:00:00 Test Item Value Reference Range Interpretation Comments PATTERN (test code = HOMOGENEOUS 95411) EZRA TITER (test code = 1:160 TITER 3550) PATTERN 2 (test code = NOT DETECTED 74666) EZRA TITER 2 (test code = NOT DETECTED TITER 24236) PATTERN 3 (test code = NOT DETECTED 69377) EZRA TITER 3 (test code = NOT DETECTED TITER 31698) METHOD (test code = 98668) (NOTE) RHEUMATOID FACTOR, [id number] 00:00:00 Test Item Value Reference Range Interpretation Comments RHEUMATOID FACTOR, QUANT (test code <10 IU/ML = 3502) RHEUMATOID FACTOR, [id number] 00:00:00 Test Item Value Reference Range Interpretation Comments RHEUMATOID FACTOR, QUANT (test code <10 IU/ML = 3502) SEDIMENTATION [id number] 00:00:00 Test Item Value Reference Range Interpretation Comments SEDIMENTATION RATE (test code = 17 MM/HOUR 1017) EZRA (ANTI-NUCLEAR AB) WITH REFLEX [id number] 00:00:00 Test Item Value Reference Range Interpretation Comments ANTI-NUCLEAR ANTIBODIES (test code = POSITIVE 3506) HLA [id number] 00:00:00 Test Item Value Reference Range Interpretation Comments HLA-B27 (test code = 89615) NOT PRESENT CCP [id number] 00:00:00 Test Item Value Reference Range Interpretation Comments CCP IgG (test code = 48968) 0.5 U/ML CCP [id number] 00:00:00 Test Item Value Reference Range Interpretation Comments CCP IgG (test code = 58553) 0.5 U/ML CBC W/AUTO [id number] 00:00:00 Test Item Value Reference Range Interpretation Comments WBC (test code = 1001) 7.3 K/UL RBC (test code = 1002) 4.97 M/UL HEMOGLOBIN (test code = 1003) 14.1 G/DL HEMATOCRIT (test code = 1004) 43.4 % MCV (test code = 1005) 87.3 fL MCH (test code = 1006) 28.4 PG MCHC (test code = 1007) 32.5 G/DL RDW (test code = 1038) 13.1 % NEUTROPHILS (test code = 1008) 54.3 % LYMPHOCYTES (test code = 1010) 36.6 % MONOCYTES (test code = 1011) 6.5 % EOSINOPHILS (test code = 1012) 2.2 % BASOPHILS (test code = 1013) 0.1 % IMMATURE GRANULOCYTES (test 0.3 % code = 1036) NUCLEATED RBCS (test code = 0.0 /100WBC'S 1065) PLATELET COUNT (test code = 244 K/UL 1015) ABSOLUTE NEUTROPHILS (test code 3.94 K/UL = 1066) ABSOLUTE LYMPHOCYTES (test code 2.66 K/UL = 1067) ABSOLUTE MONOCYTES (test code = 0.47 K/UL 1068) ABSOLUTE EOSINOPHILS (test code 0.16 K/UL = 1040) ABSOLUTE BASOPHILS (test code = 0.01 K/UL 1069) ABS IMMATURE GRANULOCYTES (test 0.02 K/UL code = 1020) ABS NUCLEATED RBCS (test code = 0.00 K/UL 27522) CBC W/AUTO [id number] 00:00:00 Test Item Value Reference Range Interpretation Comments WBC (test code = 1001) 7.3 K/UL RBC (test code = 1002) 4.97 M/UL HEMOGLOBIN (test code = 1003) 14.1 G/DL HEMATOCRIT (test code = 1004) 43.4 % MCV (test code = 1005) 87.3 fL MCH (test code = 1006) 28.4 PG MCHC (test code = 1007) 32.5 G/DL RDW (test code = 1038) 13.1 % NEUTROPHILS (test code = 1008) 54.3 % LYMPHOCYTES (test code = 1010) 36.6 % MONOCYTES (test code = 1011) 6.5 % EOSINOPHILS (test code = 1012) 2.2 % BASOPHILS (test code = 1013) 0.1 % IMMATURE GRANULOCYTES (test 0.3 % code = 1036) NUCLEATED RBCS (test code = 0.0 /100WBC'S 1065) PLATELET COUNT (test code = 244 K/UL 1015) ABSOLUTE NEUTROPHILS (test code 3.94 K/UL = 1066) ABSOLUTE LYMPHOCYTES (test code 2.66 K/UL = 1067) ABSOLUTE MONOCYTES (test code = 0.47 K/UL 1068) ABSOLUTE EOSINOPHILS (test code 0.16 K/UL = 1040) ABSOLUTE BASOPHILS (test code = 0.01 K/UL 1069) ABS IMMATURE GRANULOCYTES (test 0.02 K/UL code = 1020) ABS NUCLEATED RBCS (test code = 0.00 K/UL 40225) CBC W/AUTO [id number] 00:00:00 Test Item Value Reference Range Interpretation Comments WBC (test code = 1001) 7.3 K/UL RBC (test code = 1002) 4.97 M/UL HEMOGLOBIN (test code = 1003) 14.1 G/DL HEMATOCRIT (test code = 1004) 43.4 % MCV (test code = 1005) 87.3 fL MCH (test code = 1006) 28.4 PG MCHC (test code = 1007) 32.5 G/DL RDW (test code = 1038) 13.1 % NEUTROPHILS (test code = 1008) 54.3 % LYMPHOCYTES (test code = 1010) 36.6 % MONOCYTES (test code = 1011) 6.5 % EOSINOPHILS (test code = 1012) 2.2 % BASOPHILS (test code = 1013) 0.1 % IMMATURE GRANULOCYTES (test 0.3 % code = 1036) NUCLEATED RBCS (test code = 0.0 /100WBC'S 1065) PLATELET COUNT (test code = 244 K/UL 1015) ABSOLUTE NEUTROPHILS (test code 3.94 K/UL = 1066) ABSOLUTE LYMPHOCYTES (test code 2.66 K/UL = 1067) ABSOLUTE MONOCYTES (test code = 0.47 K/UL 1068) ABSOLUTE EOSINOPHILS (test code 0.16 K/UL = 1040) ABSOLUTE BASOPHILS (test code = 0.01 K/UL 1069) ABS IMMATURE GRANULOCYTES (test 0.02 K/UL code = 1020) ABS NUCLEATED RBCS (test code = 0.00 K/UL 71512) RHEUMATOID FACTOR, [id number] 00:00:00 Test Item Value Reference Range Interpretation Comments RHEUMATOID FACTOR, QUANT (test code <10 IU/ML = 3502) RHEUMATOID FACTOR, [id number] 00:00:00 Test Item Value Reference Range Interpretation Comments RHEUMATOID FACTOR, QUANT (test code <10 IU/ML = 3502) RHEUMATOID FACTOR, [id number] 00:00:00 Test Item Value Reference Range Interpretation Comments RHEUMATOID FACTOR, QUANT (test code <10 IU/ML = 3502) SEDIMENTATION [id number] 00:00:00 Test Item Value Reference Range Interpretation Comments SEDIMENTATION RATE (test code = 17 MM/HOUR 1017) SEDIMENTATION [id number] 00:00:00 Test Item Value Reference Range Interpretation Comments SEDIMENTATION RATE (test code = 17 MM/HOUR 1017) EZRA (ANTI-NUCLEAR AB) WITH REFLEX [id number] 00:00:00 Test Item Value Reference Range Interpretation Comments ANTI-NUCLEAR ANTIBODIES (test code = POSITIVE 3506) EZRA (ANTI-NUCLEAR AB) WITH REFLEX [id number] 00:00:00 Test Item Value Reference Range Interpretation Comments ANTI-NUCLEAR ANTIBODIES (test code = POSITIVE 3506) HLA [id number] 00:00:00 Test Item Value Reference Range Interpretation Comments HLA-B27 (test code = 34364) NOT PRESENT HLA [id number] 00:00:00 Test Item Value Reference Range Interpretation Comments HLA-B27 (test code = 71980) NOT PRESENT CCP [id number] 00:00:00 Test Item Value Reference Range Interpretation Comments CCP IgG (test code = 95193) 0.5 U/ML CCP [id number] 00:00:00 Test Item Value Reference Range Interpretation Comments CCP IgG (test code = 80582) 0.5 U/ML CCP [id number] 00:00:00 Test Item Value Reference Range Interpretation Comments CCP IgG (test code = 28206) 0.5 U/ML CBC W/AUTO [id number] 00:00:00 Test Item Value Reference Range Interpretation Comments WBC (test code = 1001) 7.3 K/UL RBC (test code = 1002) 4.97 M/UL HEMOGLOBIN (test code = 1003) 14.1 G/DL HEMATOCRIT (test code = 1004) 43.4 % MCV (test code = 1005) 87.3 fL MCH (test code = 1006) 28.4 PG MCHC (test code = 1007) 32.5 G/DL RDW (test code = 1038) 13.1 % NEUTROPHILS (test code = 1008) 54.3 % LYMPHOCYTES (test code = 1010) 36.6 % MONOCYTES (test code = 1011) 6.5 % EOSINOPHILS (test code = 1012) 2.2 % BASOPHILS (test code = 1013) 0.1 % IMMATURE GRANULOCYTES (test 0.3 % code = 1036) NUCLEATED RBCS (test code = 0.0 /100WBC'S 1065) PLATELET COUNT (test code = 244 K/UL 1015) ABSOLUTE NEUTROPHILS (test code 3.94 K/UL = 1066) ABSOLUTE LYMPHOCYTES (test code 2.66 K/UL = 1067) ABSOLUTE MONOCYTES (test code = 0.47 K/UL 1068) ABSOLUTE EOSINOPHILS (test code 0.16 K/UL = 1040) ABSOLUTE BASOPHILS (test code = 0.01 K/UL 1069) ABS IMMATURE GRANULOCYTES (test 0.02 K/UL code = 1020) ABS NUCLEATED RBCS (test code = 0.00 K/UL 89795) CBC W/AUTO [id number] 00:00:00 Test Item Value Reference Range Interpretation Comments WBC (test code = 1001) 7.3 K/UL RBC (test code = 1002) 4.97 M/UL HEMOGLOBIN (test code = 1003) 14.1 G/DL HEMATOCRIT (test code = 1004) 43.4 % MCV (test code = 1005) 87.3 fL MCH (test code = 1006) 28.4 PG MCHC (test code = 1007) 32.5 G/DL RDW (test code = 1038) 13.1 % NEUTROPHILS (test code = 1008) 54.3 % LYMPHOCYTES (test code = 1010) 36.6 % MONOCYTES (test code = 1011) 6.5 % EOSINOPHILS (test code = 1012) 2.2 % BASOPHILS (test code = 1013) 0.1 % IMMATURE GRANULOCYTES (test 0.3 % code = 1036) NUCLEATED RBCS (test code = 0.0 /100WBC'S 1065) PLATELET COUNT (test code = 244 K/UL 1015) ABSOLUTE NEUTROPHILS (test code 3.94 K/UL = 1066) ABSOLUTE LYMPHOCYTES (test code 2.66 K/UL = 1067) ABSOLUTE MONOCYTES (test code = 0.47 K/UL 1068) ABSOLUTE EOSINOPHILS (test code 0.16 K/UL = 1040) ABSOLUTE BASOPHILS (test code = 0.01 K/UL 1069) ABS IMMATURE GRANULOCYTES (test 0.02 K/UL code = 1020) ABS NUCLEATED RBCS (test code = 0.00 K/UL 70413) CBC W/AUTO [id number] 00:00:00 Test Item Value Reference Range Interpretation Comments WBC (test code = 1001) 7.3 K/UL RBC (test code = 1002) 4.97 M/UL HEMOGLOBIN (test code = 1003) 14.1 G/DL HEMATOCRIT (test code = 1004) 43.4 % MCV (test code = 1005) 87.3 fL MCH (test code = 1006) 28.4 PG MCHC (test code = 1007) 32.5 G/DL RDW (test code = 1038) 13.1 % NEUTROPHILS (test code = 1008) 54.3 % LYMPHOCYTES (test code = 1010) 36.6 % MONOCYTES (test code = 1011) 6.5 % EOSINOPHILS (test code = 1012) 2.2 % BASOPHILS (test code = 1013) 0.1 % IMMATURE GRANULOCYTES (test 0.3 % code = 1036) NUCLEATED RBCS (test code = 0.0 /100WBC'S 1065) PLATELET COUNT (test code = 244 K/UL 1015) ABSOLUTE NEUTROPHILS (test code 3.94 K/UL = 1066) ABSOLUTE LYMPHOCYTES (test code 2.66 K/UL = 1067) ABSOLUTE MONOCYTES (test code = 0.47 K/UL 1068) ABSOLUTE EOSINOPHILS (test code 0.16 K/UL = 1040) ABSOLUTE BASOPHILS (test code = 0.01 K/UL 1069) ABS IMMATURE GRANULOCYTES (test 0.02 K/UL code = 1020) ABS NUCLEATED RBCS (test code = 0.00 K/UL 55144) RHEUMATOID FACTOR, [id number] 00:00:00 Test Item Value Reference Range Interpretation Comments RHEUMATOID FACTOR, QUANT (test code <10 IU/ML = 3502) RHEUMATOID FACTOR, [id number] 00:00:00 Test Item Value Reference Range Interpretation Comments RHEUMATOID FACTOR, QUANT (test code <10 IU/ML = 3502) RHEUMATOID FACTOR, [id number] 00:00:00 Test Item Value Reference Range Interpretation Comments RHEUMATOID FACTOR, QUANT (test code <10 IU/ML = 3502) SEDIMENTATION [id number] 00:00:00 Test Item Value Reference Range Interpretation Comments SEDIMENTATION RATE (test code = 17 MM/HOUR 1017) SEDIMENTATION [id number] 00:00:00 Test Item Value Reference Range Interpretation Comments SEDIMENTATION RATE (test code = 17 MM/HOUR 1017) EZRA (ANTI-NUCLEAR AB) WITH REFLEX [id number] 00:00:00 Test Item Value Reference Range Interpretation Comments ANTI-NUCLEAR ANTIBODIES (test code = POSITIVE 3506) EZRA (ANTI-NUCLEAR AB) WITH REFLEX [id number] 00:00:00 Test Item Value Reference Range Interpretation Comments ANTI-NUCLEAR ANTIBODIES (test code = POSITIVE 3506) HLA [id number] 00:00:00 Test Item Value Reference Range Interpretation Comments HLA-B27 (test code = 18932) NOT PRESENT HLA [id number] 00:00:00 Test Item Value Reference Range Interpretation Comments HLA-B27 (test code = 81361) NOT PRESENT CCP [id number] 00:00:00 Test Item Value Reference Range Interpretation Comments CCP IgG (test code = 50179) 0.5 U/ML CCP [id number] 00:00:00 Test Item Value Reference Range Interpretation Comments CCP IgG (test code = 87094) 0.5 U/ML CCP [id number] 00:00:00 Test Item Value Reference Range Interpretation Comments CCP IgG (test code = 77840) 0.5 U/ML CBC W/AUTO [id number] 00:00:00 Test Item Value Reference Range Interpretation Comments WBC (test code = 1001) 7.3 K/UL RBC (test code = 1002) 4.97 M/UL HEMOGLOBIN (test code = 1003) 14.1 G/DL HEMATOCRIT (test code = 1004) 43.4 % MCV (test code = 1005) 87.3 fL MCH (test code = 1006) 28.4 PG MCHC (test code = 1007) 32.5 G/DL RDW (test code = 1038) 13.1 % NEUTROPHILS (test code = 1008) 54.3 % LYMPHOCYTES (test code = 1010) 36.6 % MONOCYTES (test code = 1011) 6.5 % EOSINOPHILS (test code = 1012) 2.2 % BASOPHILS (test code = 1013) 0.1 % IMMATURE GRANULOCYTES (test 0.3 % code = 1036) NUCLEATED RBCS (test code = 0.0 /100WBC'S 1065) PLATELET COUNT (test code = 244 K/UL 1015) ABSOLUTE NEUTROPHILS (test code 3.94 K/UL = 1066) ABSOLUTE LYMPHOCYTES (test code 2.66 K/UL = 1067) ABSOLUTE MONOCYTES (test code = 0.47 K/UL 1068) ABSOLUTE EOSINOPHILS (test code 0.16 K/UL = 1040) ABSOLUTE BASOPHILS (test code = 0.01 K/UL 1069) ABS IMMATURE GRANULOCYTES (test 0.02 K/UL code = 1020) ABS NUCLEATED RBCS (test code = 0.00 K/UL 28823) CBC W/AUTO [id number] 00:00:00 Test Item Value Reference Range Interpretation Comments WBC (test code = 1001) 7.3 K/UL RBC (test code = 1002) 4.97 M/UL HEMOGLOBIN (test code = 1003) 14.1 G/DL HEMATOCRIT (test code = 1004) 43.4 % MCV (test code = 1005) 87.3 fL MCH (test code = 1006) 28.4 PG MCHC (test code = 1007) 32.5 G/DL RDW (test code = 1038) 13.1 % NEUTROPHILS (test code = 1008) 54.3 % LYMPHOCYTES (test code = 1010) 36.6 % MONOCYTES (test code = 1011) 6.5 % EOSINOPHILS (test code = 1012) 2.2 % BASOPHILS (test code = 1013) 0.1 % IMMATURE GRANULOCYTES (test 0.3 % code = 1036) NUCLEATED RBCS (test code = 0.0 /100WBC'S 1065) PLATELET COUNT (test code = 244 K/UL 1015) ABSOLUTE NEUTROPHILS (test code 3.94 K/UL = 1066) ABSOLUTE LYMPHOCYTES (test code 2.66 K/UL = 1067) ABSOLUTE MONOCYTES (test code = 0.47 K/UL 1068) ABSOLUTE EOSINOPHILS (test code 0.16 K/UL = 1040) ABSOLUTE BASOPHILS (test code = 0.01 K/UL 1069) ABS IMMATURE GRANULOCYTES (test 0.02 K/UL code = 1020) ABS NUCLEATED RBCS (test code = 0.00 K/UL 76636) CBC W/AUTO [id number] 00:00:00 Test Item Value Reference Range Interpretation Comments WBC (test code = 1001) 7.3 K/UL RBC (test code = 1002) 4.97 M/UL HEMOGLOBIN (test code = 1003) 14.1 G/DL HEMATOCRIT (test code = 1004) 43.4 % MCV (test code = 1005) 87.3 fL MCH (test code = 1006) 28.4 PG MCHC (test code = 1007) 32.5 G/DL RDW (test code = 1038) 13.1 % NEUTROPHILS (test code = 1008) 54.3 % LYMPHOCYTES (test code = 1010) 36.6 % MONOCYTES (test code = 1011) 6.5 % EOSINOPHILS (test code = 1012) 2.2 % BASOPHILS (test code = 1013) 0.1 % IMMATURE GRANULOCYTES (test 0.3 % code = 1036) NUCLEATED RBCS (test code = 0.0 /100WBC'S 1065) PLATELET COUNT (test code = 244 K/UL 1015) ABSOLUTE NEUTROPHILS (test code 3.94 K/UL = 1066) ABSOLUTE LYMPHOCYTES (test code 2.66 K/UL = 1067) ABSOLUTE MONOCYTES (test code = 0.47 K/UL 1068) ABSOLUTE EOSINOPHILS (test code 0.16 K/UL = 1040) ABSOLUTE BASOPHILS (test code = 0.01 K/UL 1069) ABS IMMATURE GRANULOCYTES (test 0.02 K/UL code = 1020) ABS NUCLEATED RBCS (test code = 0.00 K/UL 85445) RHEUMATOID FACTOR, [id number] 00:00:00 Test Item Value Reference Range Interpretation Comments RHEUMATOID FACTOR, QUANT (test code <10 IU/ML = 3502) RHEUMATOID FACTOR, [id number] 00:00:00 Test Item Value Reference Range Interpretation Comments RHEUMATOID FACTOR, QUANT (test code <10 IU/ML = 3502) RHEUMATOID FACTOR, [id number] 00:00:00 Test Item Value Reference Range Interpretation Comments RHEUMATOID FACTOR, QUANT (test code <10 IU/ML = 3502) SEDIMENTATION [id number] 00:00:00 Test Item Value Reference Range Interpretation Comments SEDIMENTATION RATE (test code = 17 MM/HOUR 1017) SEDIMENTATION [id number] 00:00:00 Test Item Value Reference Range Interpretation Comments SEDIMENTATION RATE (test code = 17 MM/HOUR 1017) EZRA (ANTI-NUCLEAR AB) WITH REFLEX [id number] 00:00:00 Test Item Value Reference Range Interpretation Comments ANTI-NUCLEAR ANTIBODIES (test code = POSITIVE 3506) EZRA (ANTI-NUCLEAR AB) WITH REFLEX [id number] 00:00:00 Test Item Value Reference Range Interpretation Comments ANTI-NUCLEAR ANTIBODIES (test code = POSITIVE 3506) HLA [id number] 00:00:00 Test Item Value Reference Range Interpretation Comments HLA-B27 (test code = 73894) NOT PRESENT HLA [id number] 00:00:00 Test Item Value Reference Range Interpretation Comments HLA-B27 (test code = 91568) NOT PRESENT CCP [id number] 00:00:00 Test Item Value Reference Range Interpretation Comments CCP IgG (test code = 16224) 0.5 U/ML CCP [id number] 00:00:00 Test Item Value Reference Range Interpretation Comments CCP IgG (test code = 03136) 0.5 U/ML CCP [id number] 00:00:00 Test Item Value Reference Range Interpretation Comments CCP IgG (test code = 83508) 0.5 U/ML CBC W/AUTO [id number] 00:00:00 Test Item Value Reference Range Interpretation Comments WBC (test code = 1001) 7.3 K/UL RBC (test code = 1002) 4.97 M/UL HEMOGLOBIN (test code = 1003) 14.1 G/DL HEMATOCRIT (test code = 1004) 43.4 % MCV (test code = 1005) 87.3 fL MCH (test code = 1006) 28.4 PG MCHC (test code = 1007) 32.5 G/DL RDW (test code = 1038) 13.1 % NEUTROPHILS (test code = 1008) 54.3 % LYMPHOCYTES (test code = 1010) 36.6 % MONOCYTES (test code = 1011) 6.5 % EOSINOPHILS (test code = 1012) 2.2 % BASOPHILS (test code = 1013) 0.1 % IMMATURE GRANULOCYTES (test 0.3 % code = 1036) NUCLEATED RBCS (test code = 0.0 /100WBC'S 1065) PLATELET COUNT (test code = 244 K/UL 1015) ABSOLUTE NEUTROPHILS (test code 3.94 K/UL = 1066) ABSOLUTE LYMPHOCYTES (test code 2.66 K/UL = 1067) ABSOLUTE MONOCYTES (test code = 0.47 K/UL 1068) ABSOLUTE EOSINOPHILS (test code 0.16 K/UL = 1040) ABSOLUTE BASOPHILS (test code = 0.01 K/UL 1069) ABS IMMATURE GRANULOCYTES (test 0.02 K/UL code = 1020) ABS NUCLEATED RBCS (test code = 0.00 K/UL 32821) CBC W/AUTO [id number] 00:00:00 Test Item Value Reference Range Interpretation Comments WBC (test code = 1001) 7.3 K/UL RBC (test code = 1002) 4.97 M/UL HEMOGLOBIN (test code = 1003) 14.1 G/DL HEMATOCRIT (test code = 1004) 43.4 % MCV (test code = 1005) 87.3 fL MCH (test code = 1006) 28.4 PG MCHC (test code = 1007) 32.5 G/DL RDW (test code = 1038) 13.1 % NEUTROPHILS (test code = 1008) 54.3 % LYMPHOCYTES (test code = 1010) 36.6 % MONOCYTES (test code = 1011) 6.5 % EOSINOPHILS (test code = 1012) 2.2 % BASOPHILS (test code = 1013) 0.1 % IMMATURE GRANULOCYTES (test 0.3 % code = 1036) NUCLEATED RBCS (test code = 0.0 /100WBC'S 1065) PLATELET COUNT (test code = 244 K/UL 1015) ABSOLUTE NEUTROPHILS (test code 3.94 K/UL = 1066) ABSOLUTE LYMPHOCYTES (test code 2.66 K/UL = 1067) ABSOLUTE MONOCYTES (test code = 0.47 K/UL 1068) ABSOLUTE EOSINOPHILS (test code 0.16 K/UL = 1040) ABSOLUTE BASOPHILS (test code = 0.01 K/UL 1069) ABS IMMATURE GRANULOCYTES (test 0.02 K/UL code = 1020) ABS NUCLEATED RBCS (test code = 0.00 K/UL 76774) LIPID [id number] 00:00:00 Test Item Value Reference Range Interpretation Comments CHOLESTEROL (test code = 2210) 111 MG/DL TRIGLYCERIDES (test code = 2232) 177 MG/DL HDL CHOLESTEROL (test code = 2220) 44 MG/DL CALC LDL CHOL (test code = 2237) 42 MG/DL RISK RATIO LDL/HDL (test code = 0.95 RATIO 2238) COMPREHENSIVE METABOLIC [id number] 00:00:00 Test Item Value Reference Range Interpretation Comments GLUCOSE (test code = 2217) 148 MG/DL BUN (test code = 2208) 13 MG/DL CREATININE (test code = 2214) 0.67 MG/DL eGFR AMER. (test code 112 ML/MIN/1.73 = 08148) eGFR NON- AMER. (test 97 ML/MIN/1.73 code = 38313) CALC BUN/CREAT (test code = 19 RATIO 2235) SODIUM (test code = 2231) 142 MEQ/L POTASSIUM (test code = 2228) 4.4 MEQ/L CHLORIDE (test code = 2215) 105 MEQ/L CARBON DIOXIDE (test code = 23 MEQ/L 2205) CALCIUM (test code = 2209) 9.3 MG/DL PROTEIN, TOTAL (test code = 7.9 G/DL 2228) ALBUMIN (test code = 2201) 4.6 G/DL CALC GLOBULIN (test code = 3.3 G/DL 2239) CALC A/G RATIO (test code = 1.4 RATIO 2233) BILIRUBIN, TOTAL (test code = 0.6 MG/DL 2206) ALKALINE PHOSPHATASE (test 98 U/L code = 2204) AST (test code = 2218) 15 U/L ALT (test code = 2219) 23 U/L [id number] 00:00:00 Test Item Value Reference Range Interpretation Comments TSH, THIRD GENERATION (test code 0.742 UIU/ML = 2821) [id number] 00:00:00 Test Item Value Reference Range Interpretation Comments TSH, THIRD GENERATION (test code 0.742 UIU/ML = 2821) HEMOGLOBIN [id number] 00:00:00 Test Item Value Reference Range Interpretation Comments HEMOGLOBIN A1c (test code = 22114) 6.1 % HEMOGLOBIN [id number] 00:00:00 Test Item Value Reference Range Interpretation Comments HEMOGLOBIN A1c (test code = 70461) 6.1 % HEMOGLOBIN [id number] 00:00:00 Test Item Value Reference Range Interpretation Comments HEMOGLOBIN A1c (test code = 43590) 6.1 % LIPID [id number] 00:00:00 Test Item Value Reference Range Interpretation Comments CHOLESTEROL (test code = 2210) 111 MG/DL TRIGLYCERIDES (test code = 2232) 177 MG/DL HDL CHOLESTEROL (test code = 2220) 44 MG/DL CALC LDL CHOL (test code = 2237) 42 MG/DL RISK RATIO LDL/HDL (test code = 0.95 RATIO 2238) LIPID [id number] 00:00:00 Test Item Value Reference Range Interpretation Comments CHOLESTEROL (test code = 2210) 111 MG/DL TRIGLYCERIDES (test code = 2232) 177 MG/DL HDL CHOLESTEROL (test code = 2220) 44 MG/DL CALC LDL CHOL (test code = 2237) 42 MG/DL RISK RATIO LDL/HDL (test code = 0.95 RATIO 2238) COMPREHENSIVE METABOLIC [id number] 00:00:00 Test Item Value Reference Range Interpretation Comments GLUCOSE (test code = 2217) 148 MG/DL BUN (test code = 2208) 13 MG/DL CREATININE (test code = 2214) 0.67 MG/DL eGFR AMER. (test code 112 ML/MIN/1.73 = 12454) eGFR NON- AMER. (test 97 ML/MIN/1.73 code = 81972) CALC BUN/CREAT (test code = 19 RATIO 2235) SODIUM (test code = 2231) 142 MEQ/L POTASSIUM (test code = 2228) 4.4 MEQ/L CHLORIDE (test code = 2215) 105 MEQ/L CARBON DIOXIDE (test code = 23 MEQ/L 2205) CALCIUM (test code = 2209) 9.3 MG/DL PROTEIN, TOTAL (test code = 7.9 G/DL 2228) ALBUMIN (test code = 2201) 4.6 G/DL CALC GLOBULIN (test code = 3.3 G/DL 2240) CALC A/G RATIO (test code = 1.4 RATIO 2234) BILIRUBIN, TOTAL (test code = 0.6 MG/DL 2206) ALKALINE PHOSPHATASE (test 98 U/L code = 2204) AST (test code = 2218) 15 U/L ALT (test code = 2219) 23 U/L COMPREHENSIVE METABOLIC [id number] 00:00:00 Test Item Value Reference Range Interpretation Comments GLUCOSE (test code = 2217) 148 MG/DL BUN (test code = 2208) 13 MG/DL CREATININE (test code = 2214) 0.67 MG/DL eGFR AMER. (test code 112 ML/MIN/1.73 = 66370) eGFR NON- AMER. (test 97 ML/MIN/1.73 code = 68777) CALC BUN/CREAT (test code = 19 RATIO 2235) SODIUM (test code = 2231) 142 MEQ/L POTASSIUM (test code = 2228) 4.4 MEQ/L CHLORIDE (test code = 2215) 105 MEQ/L CARBON DIOXIDE (test code = 23 MEQ/L 2205) CALCIUM (test code = 2209) 9.3 MG/DL PROTEIN, TOTAL (test code = 7.9 G/DL 2228) ALBUMIN (test code = 2201) 4.6 G/DL CALC GLOBULIN (test code = 3.3 G/DL 2240) CALC A/G RATIO (test code = 1.4 RATIO 2234) BILIRUBIN, TOTAL (test code = 0.6 MG/DL 2206) ALKALINE PHOSPHATASE (test 98 U/L code = 2204) AST (test code = 2218) 15 U/L ALT (test code = 2219) 23 U/L [id number] 00:00:00 Test Item Value Reference Range Interpretation Comments TSH, THIRD GENERATION (test code 0.742 UIU/ML = 2821) [id number] 00:00:00 Test Item Value Reference Range Interpretation Comments TSH, THIRD GENERATION (test code 0.742 UIU/ML = 2821) [id number] 00:00:00 Test Item Value Reference Range Interpretation Comments TSH, THIRD GENERATION (test code 0.742 UIU/ML = 2821) HEMOGLOBIN [id number] 00:00:00 Test Item Value Reference Range Interpretation Comments HEMOGLOBIN A1c (test code = 90236) 6.1 % HEMOGLOBIN [id number] 00:00:00 Test Item Value Reference Range Interpretation Comments HEMOGLOBIN A1c (test code = 19909) 6.1 % HEMOGLOBIN [id number] 00:00:00 Test Item Value Reference Range Interpretation Comments HEMOGLOBIN A1c (test code = 32830) 6.1 % LIPID [id number] 00:00:00 Test Item Value Reference Range Interpretation Comments CHOLESTEROL (test code = 2210) 111 MG/DL TRIGLYCERIDES (test code = 2232) 177 MG/DL HDL CHOLESTEROL (test code = 2220) 44 MG/DL CALC LDL CHOL (test code = 2237) 42 MG/DL RISK RATIO LDL/HDL (test code = 0.95 RATIO 2238) LIPID [id number] 00:00:00 Test Item Value Reference Range Interpretation Comments CHOLESTEROL (test code = 2210) 111 MG/DL TRIGLYCERIDES (test code = 2232) 177 MG/DL HDL CHOLESTEROL (test code = 2220) 44 MG/DL CALC LDL CHOL (test code = 2237) 42 MG/DL RISK RATIO LDL/HDL (test code = 0.95 RATIO 2238) COMPREHENSIVE METABOLIC [id number] 00:00:00 Test Item Value Reference Range Interpretation Comments GLUCOSE (test code = 2217) 148 MG/DL BUN (test code = 2208) 13 MG/DL CREATININE (test code = 2214) 0.67 MG/DL eGFR AMER. (test code 112 ML/MIN/1.73 = 80118) eGFR NON- AMER. (test 97 ML/MIN/1.73 code = 23802) CALC BUN/CREAT (test code = 19 RATIO 2235) SODIUM (test code = 2231) 142 MEQ/L POTASSIUM (test code = 2228) 4.4 MEQ/L CHLORIDE (test code = 2215) 105 MEQ/L CARBON DIOXIDE (test code = 23 MEQ/L 2206) CALCIUM (test code = 2209) 9.3 MG/DL PROTEIN, TOTAL (test code = 7.9 G/DL 2228) ALBUMIN (test code = 2201) 4.6 G/DL CALC GLOBULIN (test code = 3.3 G/DL 2240) CALC A/G RATIO (test code = 1.4 RATIO 4) BILIRUBIN, TOTAL (test code = 0.6 MG/DL 2206) ALKALINE PHOSPHATASE (test 98 U/L code = 2204) AST (test code = 2218) 15 U/L ALT (test code = 2219) 23 U/L COMPREHENSIVE METABOLIC [id number] 00:00:00 Test Item Value Reference Range Interpretation Comments GLUCOSE (test code = 2217) 148 MG/DL BUN (test code = 2208) 13 MG/DL CREATININE (test code = 2214) 0.67 MG/DL eGFR AMER. (test code 112 ML/MIN/1.73 = 24334) eGFR NON- AMER. (test 97 ML/MIN/1.73 code = 71448) CALC BUN/CREAT (test code = 19 RATIO 2235) SODIUM (test code = 2231) 142 MEQ/L POTASSIUM (test code = 2228) 4.4 MEQ/L CHLORIDE (test code = 2215) 105 MEQ/L CARBON DIOXIDE (test code = 23 MEQ/L 2206) CALCIUM (test code = 2209) 9.3 MG/DL PROTEIN, TOTAL (test code = 7.9 G/DL 2228) ALBUMIN (test code = 2201) 4.6 G/DL CALC GLOBULIN (test code = 3.3 G/DL 2240) CALC A/G RATIO (test code = 1.4 RATIO 2234) BILIRUBIN, TOTAL (test code = 0.6 MG/DL 2206) ALKALINE PHOSPHATASE (test 98 U/L code = 2204) AST (test code = 2218) 15 U/L ALT (test code = 2219) 23 U/L [id number] 00:00:00 Test Item Value Reference Range Interpretation Comments TSH, THIRD GENERATION (test code 0.742 UIU/ML = 2821) [id number] 00:00:00 Test Item Value Reference Range Interpretation Comments TSH, THIRD GENERATION (test code 0.742 UIU/ML = 2821) [id number] 00:00:00 Test Item Value Reference Range Interpretation Comments TSH, THIRD GENERATION (test code 0.742 UIU/ML = 2821) HEMOGLOBIN [id number] 00:00:00 Test Item Value Reference Range Interpretation Comments HEMOGLOBIN A1c (test code = 99537) 6.1 % HEMOGLOBIN [id number] 00:00:00 Test Item Value Reference Range Interpretation Comments HEMOGLOBIN A1c (test code = 61418) 6.1 % HEMOGLOBIN [id number] 00:00:00 Test Item Value Reference Range Interpretation Comments HEMOGLOBIN A1c (test code = 24314) 6.1 % LIPID [id number] 00:00:00 Test Item Value Reference Range Interpretation Comments CHOLESTEROL (test code = 2210) 111 MG/DL TRIGLYCERIDES (test code = 2232) 177 MG/DL HDL CHOLESTEROL (test code = 2220) 44 MG/DL CALC LDL CHOL (test code = 2237) 42 MG/DL RISK RATIO LDL/HDL (test code = 0.95 RATIO 2238) LIPID [id number] 00:00:00 Test Item Value Reference Range Interpretation Comments CHOLESTEROL (test code = 2210) 111 MG/DL TRIGLYCERIDES (test code = 2232) 177 MG/DL HDL CHOLESTEROL (test code = 2220) 44 MG/DL CALC LDL CHOL (test code = 2237) 42 MG/DL RISK RATIO LDL/HDL (test code = 0.95 RATIO 2238) COMPREHENSIVE METABOLIC [id number] 00:00:00 Test Item Value Reference Range Interpretation Comments GLUCOSE (test code = 2217) 148 MG/DL BUN (test code = 2208) 13 MG/DL CREATININE (test code = 2214) 0.67 MG/DL eGFR AMER. (test code 112 ML/MIN/1.73 = 14977) eGFR NON- AMER. (test 97 ML/MIN/1.73 code = 04733) CALC BUN/CREAT (test code = 19 RATIO 2235) SODIUM (test code = 2231) 142 MEQ/L POTASSIUM (test code = 2228) 4.4 MEQ/L CHLORIDE (test code = 2215) 105 MEQ/L CARBON DIOXIDE (test code = 23 MEQ/L 220) CALCIUM (test code = 2209) 9.3 MG/DL PROTEIN, TOTAL (test code = 7.9 G/DL 2228) ALBUMIN (test code = 2201) 4.6 G/DL CALC GLOBULIN (test code = 3.3 G/DL 2240) CALC A/G RATIO (test code = 1.4 RATIO 2234) BILIRUBIN, TOTAL (test code = 0.6 MG/DL 2206) ALKALINE PHOSPHATASE (test 98 U/L code = 2204) AST (test code = 2218) 15 U/L ALT (test code = 2219) 23 U/L COMPREHENSIVE METABOLIC [id number] 00:00:00 Test Item Value Reference Range Interpretation Comments GLUCOSE (test code = 2217) 148 MG/DL BUN (test code = 2208) 13 MG/DL CREATININE (test code = 2214) 0.67 MG/DL eGFR AMER. (test code 112 ML/MIN/1.73 = 41320) eGFR NON- AMER. (test 97 ML/MIN/1.73 code = 08633) CALC BUN/CREAT (test code = 19 RATIO 2235) SODIUM (test code = 2231) 142 MEQ/L POTASSIUM (test code = 2228) 4.4 MEQ/L CHLORIDE (test code = 2215) 105 MEQ/L CARBON DIOXIDE (test code = 23 MEQ/L 2206) CALCIUM (test code = 2209) 9.3 MG/DL PROTEIN, TOTAL (test code = 7.9 G/DL 2228) ALBUMIN (test code = 2201) 4.6 G/DL CALC GLOBULIN (test code = 3.3 G/DL 0) CALC A/G RATIO (test code = 1.4 RATIO 2233) BILIRUBIN, TOTAL (test code = 0.6 MG/DL 2206) ALKALINE PHOSPHATASE (test 98 U/L code = 2204) AST (test code = 2218) 15 U/L ALT (test code = 2219) 23 U/L [id number] 00:00:00 Test Item Value Reference Range Interpretation Comments TSH, THIRD GENERATION (test code 0.742 UIU/ML = 2821) [id number] 00:00:00 Test Item Value Reference Range Interpretation Comments TSH, THIRD GENERATION (test code 0.742 UIU/ML = 2821) [id number] 00:00:00 Test Item Value Reference Range Interpretation Comments TSH, THIRD GENERATION (test code 0.742 UIU/ML = 2821) HEMOGLOBIN [id number] 00:00:00 Test Item Value Reference Range Interpretation Comments HEMOGLOBIN A1c (test code = 18825) 6.1 % HEMOGLOBIN [id number] 00:00:00 Test Item Value Reference Range Interpretation Comments HEMOGLOBIN A1c (test code = 20154) 6.1 % SARS-CoV-2 (COVID-19) by RT-PCR (HIGH RISK)2021-04-19 00:00:00 Test Item Value Reference Range Interpretation Comments SARS-CoV-2 INTERPRETATION (test NEGATIVE code = 46878) SOURCE (test code = 45156) NOT SPECIFIED SARS-CoV-2 (COVID-19) by RT-PCR (HIGH RISK)2021-04-19 00:00:00 Test Item Value Reference Range Interpretation Comments SARS-CoV-2 INTERPRETATION (test NEGATIVE code = 57220) SOURCE (test code = 01575) NOT SPECIFIED SARS-CoV-2 (COVID-19) by RT-PCR (HIGH RISK)2021-04-19 00:00:00 Test Item Value Reference Range Interpretation Comments SARS-CoV-2 INTERPRETATION (test NEGATIVE code = 18254) SOURCE (test code = 98175) NOT SPECIFIED SARS-CoV-2 (COVID-19) by RT-PCR (HIGH RISK)2021-04-19 00:00:00 Test Item Value Reference Range Interpretation Comments SARS-CoV-2 INTERPRETATION (test NEGATIVE code = 24000) SOURCE (test code = 07716) NOT SPECIFIED SARS-CoV-2 (COVID-19) by RT-PCR (HIGH RISK)2021-04-19 00:00:00 Test Item Value Reference Range Interpretation Comments SARS-CoV-2 INTERPRETATION (test NEGATIVE code = 25507) SOURCE (test code = 68411) NOT SPECIFIED SARS-CoV-2 (COVID-19) by RT-PCR (HIGH RISK)2021-04-19 00:00:00 Test Item Value Reference Range Interpretation Comments SARS-CoV-2 INTERPRETATION (test NEGATIVE code = 22551) SOURCE (test code = 55482) NOT SPECIFIED SARS-CoV-2 (COVID-19) by RT-PCR (HIGH RISK)2021-04-19 00:00:00 Test Item Value Reference Range Interpretation Comments SARS-CoV-2 INTERPRETATION (test NEGATIVE code = 92694) SOURCE (test code = 25555) NOT SPECIFIED SARS-CoV-2 (COVID-19) by RT-PCR (HIGH RISK)2021-04-08 00:00:00 Test Item Value Reference Range Interpretation Comments SARS-CoV-2 INTERPRETATION NEGATIVE (test code = 91771) SOURCE (test code = 90063) NASOPHARYNGEAL SARS-CoV-2 (COVID-19) by RT-PCR (HIGH RISK)2021-04-08 00:00:00 Test Item Value Reference Range Interpretation Comments SARS-CoV-2 INTERPRETATION NEGATIVE (test code = 47647) SOURCE (test code = 96029) NASOPHARYNGEAL SARS-CoV-2 (COVID-19) by RT-PCR (HIGH RISK)2021-04-08 00:00:00 Test Item Value Reference Range Interpretation Comments SARS-CoV-2 INTERPRETATION NEGATIVE (test code = 28076) SOURCE (test code = 40328) NASOPHARYNGEAL SARS-CoV-2 (COVID-19) by RT-PCR (HIGH RISK)2021-04-08 00:00:00 Test Item Value Reference Range Interpretation Comments SARS-CoV-2 INTERPRETATION NEGATIVE (test code = 39468) SOURCE (test code = 67207) NASOPHARYNGEAL SARS-CoV-2 (COVID-19) by RT-PCR (HIGH RISK)2021-04-08 00:00:00 Test Item Value Reference Range Interpretation Comments SARS-CoV-2 INTERPRETATION NEGATIVE (test code = 92206) SOURCE (test code = 28384) NASOPHARYNGEAL SARS-CoV-2 (COVID-19) by RT-PCR (HIGH RISK)2021-04-08 00:00:00 Test Item Value Reference Range Interpretation Comments SARS-CoV-2 INTERPRETATION NEGATIVE (test code = 93887) SOURCE (test code = 62870) NASOPHARYNGEAL SARS-CoV-2 (COVID-19) by RT-PCR (HIGH RISK)2021-04-08 00:00:00 Test Item Value Reference Range Interpretation Comments SARS-CoV-2 INTERPRETATION NEGATIVE (test code = 96252) SOURCE (test code = 35518) NASOPHARYNGEAL HEMOGLOBIN [id number] 00:00:00 Test Item Value Reference Range Interpretation Comments HEMOGLOBIN A1c (test code = 61294) 6.5 % HEMOGLOBIN [id number] 00:00:00 Test Item Value Reference Range Interpretation Comments HEMOGLOBIN A1c (test code = 17445) 6.5 % LIPID [id number] 00:00:00 Test Item Value Reference Range Interpretation Comments CHOLESTEROL (test code = 2210) 149 MG/DL TRIGLYCERIDES (test code = 2232) 245 MG/DL HDL CHOLESTEROL (test code = 2220) 47 MG/DL CALC LDL CHOL (test code = 2237) 68 MG/DL RISK RATIO LDL/HDL (test code = 1.45 RATIO 2238) COMPREHENSIVE METABOLIC [id number] 00:00:00 Test Item Value Reference Range Interpretation Comments GLUCOSE (test code = 2217) 131 MG/DL BUN (test code = 2208) 17 MG/DL CREATININE (test code = 2214) 0.55 MG/DL eGFR AMER. (test code 121 ML/MIN/1.73 = 84678) eGFR NON- AMER. (test 104 ML/MIN/1.73 code = 83978) CALC BUN/CREAT (test code = 31 RATIO 2235) SODIUM (test code = 2231) 137 MEQ/L POTASSIUM (test code = 2228) 4.1 MEQ/L CHLORIDE (test code = 2215) 100 MEQ/L CARBON DIOXIDE (test code = 24 MEQ/L 2205) CALCIUM (test code = 2209) 9.2 MG/DL PROTEIN, TOTAL (test code = 7.9 G/DL 2228) ALBUMIN (test code = 220) 4.5 G/DL CALC GLOBULIN (test code = 3.4 G/DL 0) CALC A/G RATIO (test code = 1.3 RATIO 2234) BILIRUBIN, TOTAL (test code = 0.6 MG/DL 2206) ALKALINE PHOSPHATASE (test 99 U/L code = 2204) AST (test code = 2218) 18 U/L ALT (test code = 2219) 19 U/L [id number] 00:00:00 Test Item Value Reference Range Interpretation Comments TSH, THIRD GENERATION (test code 0.480 UIU/ML = 2821) [id number] 00:00:00 Test Item Value Reference Range Interpretation Comments TSH, THIRD GENERATION (test code 0.480 UIU/ML = 2821) HEMOGLOBIN [id number] 00:00:00 Test Item Value Reference Range Interpretation Comments HEMOGLOBIN A1c (test code = 53121) 6.5 % HEMOGLOBIN [id number] 00:00:00 Test Item Value Reference Range Interpretation Comments HEMOGLOBIN A1c (test code = 62972) 6.5 % HEMOGLOBIN [id number] 00:00:00 Test Item Value Reference Range Interpretation Comments HEMOGLOBIN A1c (test code = 10147) 6.5 % LIPID [id number] 00:00:00 Test Item Value Reference Range Interpretation Comments CHOLESTEROL (test code = 2210) 149 MG/DL TRIGLYCERIDES (test code = 2232) 245 MG/DL HDL CHOLESTEROL (test code = 2220) 47 MG/DL CALC LDL CHOL (test code = 2237) 68 MG/DL RISK RATIO LDL/HDL (test code = 1.45 RATIO 2238) LIPID [id number] 00:00:00 Test Item Value Reference Range Interpretation Comments CHOLESTEROL (test code = 2210) 149 MG/DL TRIGLYCERIDES (test code = 2232) 245 MG/DL HDL CHOLESTEROL (test code = 2220) 47 MG/DL CALC LDL CHOL (test code = 2237) 68 MG/DL RISK RATIO LDL/HDL (test code = 1.45 RATIO 2238) COMPREHENSIVE METABOLIC [id number] 00:00:00 Test Item Value Reference Range Interpretation Comments GLUCOSE (test code = 2217) 131 MG/DL BUN (test code = 2208) 17 MG/DL CREATININE (test code = 2214) 0.55 MG/DL eGFR AMER. (test code 121 ML/MIN/1.73 = 92243) eGFR NON- AMER. (test 104 ML/MIN/1.73 code = 42488) CALC BUN/CREAT (test code = 31 RATIO 2235) SODIUM (test code = 2231) 137 MEQ/L POTASSIUM (test code = 2228) 4.1 MEQ/L CHLORIDE (test code = 2215) 100 MEQ/L CARBON DIOXIDE (test code = 24 MEQ/L 2206) CALCIUM (test code = 2209) 9.2 MG/DL PROTEIN, TOTAL (test code = 7.9 G/DL 2228) ALBUMIN (test code = 2201) 4.5 G/DL CALC GLOBULIN (test code = 3.4 G/DL 2240) CALC A/G RATIO (test code = 1.3 RATIO 2234) BILIRUBIN, TOTAL (test code = 0.6 MG/DL 2206) ALKALINE PHOSPHATASE (test 99 U/L code = 2203) AST (test code = 2218) 18 U/L ALT (test code = 2219) 19 U/L COMPREHENSIVE METABOLIC [id number] 00:00:00 Test Item Value Reference Range Interpretation Comments GLUCOSE (test code = 2217) 131 MG/DL BUN (test code = 2208) 17 MG/DL CREATININE (test code = 2214) 0.55 MG/DL eGFR AMER. (test code 121 ML/MIN/1.73 = 96210) eGFR NON- AMER. (test 104 ML/MIN/1.73 code = 82428) CALC BUN/CREAT (test code = 31 RATIO 2235) SODIUM (test code = 2231) 137 MEQ/L POTASSIUM (test code = 2228) 4.1 MEQ/L CHLORIDE (test code = 2215) 100 MEQ/L CARBON DIOXIDE (test code = 24 MEQ/L 2206) CALCIUM (test code = 2209) 9.2 MG/DL PROTEIN, TOTAL (test code = 7.9 G/DL 2228) ALBUMIN (test code = 2201) 4.5 G/DL CALC GLOBULIN (test code = 3.4 G/DL 2240) CALC A/G RATIO (test code = 1.3 RATIO 2234) BILIRUBIN, TOTAL (test code = 0.6 MG/DL 2206) ALKALINE PHOSPHATASE (test 99 U/L code = 220) AST (test code = 2218) 18 U/L ALT (test code = 2219) 19 U/L [id number] 00:00:00 Test Item Value Reference Range Interpretation Comments TSH, THIRD GENERATION (test code 0.480 UIU/ML = 2821) [id number] 00:00:00 Test Item Value Reference Range Interpretation Comments TSH, THIRD GENERATION (test code 0.480 UIU/ML = 2821) [id number] 00:00:00 Test Item Value Reference Range Interpretation Comments TSH, THIRD GENERATION (test code 0.480 UIU/ML = 2821) HEMOGLOBIN [id number] 00:00:00 Test Item Value Reference Range Interpretation Comments HEMOGLOBIN A1c (test code = 72336) 6.5 % HEMOGLOBIN [id number] 00:00:00 Test Item Value Reference Range Interpretation Comments HEMOGLOBIN A1c (test code = 92180) 6.5 % HEMOGLOBIN [id number] 00:00:00 Test Item Value Reference Range Interpretation Comments HEMOGLOBIN A1c (test code = 11656) 6.5 % LIPID [id number] 00:00:00 Test Item Value Reference Range Interpretation Comments CHOLESTEROL (test code = 2210) 149 MG/DL TRIGLYCERIDES (test code = 2232) 245 MG/DL HDL CHOLESTEROL (test code = 2220) 47 MG/DL CALC LDL CHOL (test code = 2237) 68 MG/DL RISK RATIO LDL/HDL (test code = 1.45 RATIO 2238) LIPID [id number] 00:00:00 Test Item Value Reference Range Interpretation Comments CHOLESTEROL (test code = 2210) 149 MG/DL TRIGLYCERIDES (test code = 2232) 245 MG/DL HDL CHOLESTEROL (test code = 2220) 47 MG/DL CALC LDL CHOL (test code = 2237) 68 MG/DL RISK RATIO LDL/HDL (test code = 1.45 RATIO 2238) COMPREHENSIVE METABOLIC [id number] 00:00:00 Test Item Value Reference Range Interpretation Comments GLUCOSE (test code = 2217) 131 MG/DL BUN (test code = 2208) 17 MG/DL CREATININE (test code = 2214) 0.55 MG/DL eGFR AMER. (test code 121 ML/MIN/1.73 = 06699) eGFR NON- AMER. (test 104 ML/MIN/1.73 code = 59911) CALC BUN/CREAT (test code = 31 RATIO 2235) SODIUM (test code = 2231) 137 MEQ/L POTASSIUM (test code = 2228) 4.1 MEQ/L CHLORIDE (test code = 2215) 100 MEQ/L CARBON DIOXIDE (test code = 24 MEQ/L 220) CALCIUM (test code = 2209) 9.2 MG/DL PROTEIN, TOTAL (test code = 7.9 G/DL 2229) ALBUMIN (test code = 2201) 4.5 G/DL CALC GLOBULIN (test code = 3.4 G/DL 2240) CALC A/G RATIO (test code = 1.3 RATIO 2234) BILIRUBIN, TOTAL (test code = 0.6 MG/DL 2206) ALKALINE PHOSPHATASE (test 99 U/L code = 2204) AST (test code = 2218) 18 U/L ALT (test code = 2219) 19 U/L COMPREHENSIVE METABOLIC [id number] 00:00:00 Test Item Value Reference Range Interpretation Comments GLUCOSE (test code = 2217) 131 MG/DL BUN (test code = 2208) 17 MG/DL CREATININE (test code = 2214) 0.55 MG/DL eGFR AMER. (test code 121 ML/MIN/1.73 = 49679) eGFR NON- AMER. (test 104 ML/MIN/1.73 code = 91835) CALC BUN/CREAT (test code = 31 RATIO 2235) SODIUM (test code = 2231) 137 MEQ/L POTASSIUM (test code = 2228) 4.1 MEQ/L CHLORIDE (test code = 2215) 100 MEQ/L CARBON DIOXIDE (test code = 24 MEQ/L 2205) CALCIUM (test code = 2209) 9.2 MG/DL PROTEIN, TOTAL (test code = 7.9 G/DL 2229) ALBUMIN (test code = 2201) 4.5 G/DL CALC GLOBULIN (test code = 3.4 G/DL 2240) CALC A/G RATIO (test code = 1.3 RATIO 2234) BILIRUBIN, TOTAL (test code = 0.6 MG/DL 2206) ALKALINE PHOSPHATASE (test 99 U/L code = 2204) AST (test code = 2218) 18 U/L ALT (test code = 2219) 19 U/L [id number] 00:00:00 Test Item Value Reference Range Interpretation Comments TSH, THIRD GENERATION (test code 0.480 UIU/ML = 2821) [id number] 00:00:00 Test Item Value Reference Range Interpretation Comments TSH, THIRD GENERATION (test code 0.480 UIU/ML = 2821) [id number] 00:00:00 Test Item Value Reference Range Interpretation Comments TSH, THIRD GENERATION (test code 0.480 UIU/ML = 2821) HEMOGLOBIN [id number] 00:00:00 Test Item Value Reference Range Interpretation Comments HEMOGLOBIN A1c (test code = 50273) 6.5 % HEMOGLOBIN [id number] 00:00:00 Test Item Value Reference Range Interpretation Comments HEMOGLOBIN A1c (test code = 41865) 6.5 % HEMOGLOBIN [id number] 00:00:00 Test Item Value Reference Range Interpretation Comments HEMOGLOBIN A1c (test code = 64690) 6.5 % LIPID [id number] 00:00:00 Test Item Value Reference Range Interpretation Comments CHOLESTEROL (test code = 2210) 149 MG/DL TRIGLYCERIDES (test code = 2232) 245 MG/DL HDL CHOLESTEROL (test code = 2220) 47 MG/DL CALC LDL CHOL (test code = 2237) 68 MG/DL RISK RATIO LDL/HDL (test code = 1.45 RATIO 2238) LIPID [id number] 00:00:00 Test Item Value Reference Range Interpretation Comments CHOLESTEROL (test code = 2210) 149 MG/DL TRIGLYCERIDES (test code = 2232) 245 MG/DL HDL CHOLESTEROL (test code = 2220) 47 MG/DL CALC LDL CHOL (test code = 2237) 68 MG/DL RISK RATIO LDL/HDL (test code = 1.45 RATIO 2238) COMPREHENSIVE METABOLIC [id number] 00:00:00 Test Item Value Reference Range Interpretation Comments GLUCOSE (test code = 2217) 131 MG/DL BUN (test code = 2208) 17 MG/DL CREATININE (test code = 2214) 0.55 MG/DL eGFR AMER. (test code 121 ML/MIN/1.73 = 71736) eGFR NON- AMER. (test 104 ML/MIN/1.73 code = 53400) CALC BUN/CREAT (test code = 31 RATIO 2235) SODIUM (test code = 2231) 137 MEQ/L POTASSIUM (test code = 2228) 4.1 MEQ/L CHLORIDE (test code = 2215) 100 MEQ/L CARBON DIOXIDE (test code = 24 MEQ/L 220) CALCIUM (test code = 2209) 9.2 MG/DL PROTEIN, TOTAL (test code = 7.9 G/DL 2228) ALBUMIN (test code = 2201) 4.5 G/DL CALC GLOBULIN (test code = 3.4 G/DL 2240) CALC A/G RATIO (test code = 1.3 RATIO 2234) BILIRUBIN, TOTAL (test code = 0.6 MG/DL 2206) ALKALINE PHOSPHATASE (test 99 U/L code = 2204) AST (test code = 2218) 18 U/L ALT (test code = 2219) 19 U/L COMPREHENSIVE METABOLIC [id number] 00:00:00 Test Item Value Reference Range Interpretation Comments GLUCOSE (test code = 2217) 131 MG/DL BUN (test code = 2208) 17 MG/DL CREATININE (test code = 2214) 0.55 MG/DL eGFR AMER. (test code 121 ML/MIN/1.73 = 69923) eGFR NON- AMER. (test 104 ML/MIN/1.73 code = 39069) CALC BUN/CREAT (test code = 31 RATIO 2235) SODIUM (test code = 2231) 137 MEQ/L POTASSIUM (test code = 2228) 4.1 MEQ/L CHLORIDE (test code = 2215) 100 MEQ/L CARBON DIOXIDE (test code = 24 MEQ/L 2205) CALCIUM (test code = 2209) 9.2 MG/DL PROTEIN, TOTAL (test code = 7.9 G/DL 2228) ALBUMIN (test code = 2201) 4.5 G/DL CALC GLOBULIN (test code = 3.4 G/DL 2240) CALC A/G RATIO (test code = 1.3 RATIO 2234) BILIRUBIN, TOTAL (test code = 0.6 MG/DL 2206) ALKALINE PHOSPHATASE (test 99 U/L code = 2204) AST (test code = 2218) 18 U/L ALT (test code = 2219) 19 U/L [id number] 00:00:00 Test Item Value Reference Range Interpretation Comments TSH, THIRD GENERATION (test code 0.480 UIU/ML = 2821) [id number] 00:00:00 Test Item Value Reference Range Interpretation Comments TSH, THIRD GENERATION (test code 0.480 UIU/ML = 2821) [id number] 00:00:00 Test Item Value Reference Range Interpretation Comments TSH, THIRD GENERATION (test code 0.480 UIU/ML = 2821) XR HIP COMP 2-3 [id number] 22:10:43 [facility] (F/KEITH/SA)Name: ZENIA PAUL : [id number] Sex: FProcedure: XR HIP COMP 2-3 viewsOrder Date: 06/01/2020 3:57 PMOrdering Provider: FARSHAD SANCHEZ linical Indication: [id number]: Pain in right hip jointComparison: NoneFINDINGS:There is no fracture or dislocation.No significant degenerative changes.Visualized portions of the hemipelvis are normal.There is no lytic or sclerotic lesion.No suspicious calcifications.Impression:1. Negative exam of the right hip.This final report was electronically signed by Dr Celi Hopkins MD 06/01/202010:04 PMDictated By: CELI HOPKINSDate: 06/01/2020 22:04[facility]ATERAL)2020-06-01 17:18:46 [facility] (LUF/KEITH/SA)Name: ZENIA PAUL ACEVEDO : [id number] Sex: FProcedure: XR LUMBAR SPINE (AP/LATERAL)Order Date: 06/01/2020 3:58 PMOrdering Provider: FARSHAD Downinginical Indication: [id number]: Low back painComparison: NoneFindings:There is no acute fracture or subluxation.Vertebral body heights are maintained.No significant degenerative disc changes or facet arthropathy.There is no appreciable scoliosis.There are no lytic or sclerotic lesions.The sacroiliac joints are normal.Impression:1. Negative Three-view exam of the lumbar spine.This final report was electronically signed by Dr Celi Hopkins MD 06/01/20205:12 PMDictated By: CELI HOPKINSDate: 06/01/2020 17:12[facility]MTEX[facility] CENTERHEMOGLOBIN [id number] 00:00:00 Test Item Value Reference Range Interpretation Comments HEMOGLOBIN A1c (test code = 61683) 6.7 % HEMOGLOBIN [id number] 00:00:00 Test Item Value Reference Range Interpretation Comments HEMOGLOBIN A1c (test code = 40442) 6.7 % HEMOGLOBIN [id number] 00:00:00 Test Item Value Reference Range Interpretation Comments HEMOGLOBIN A1c (test code = 88385) 6.7 % HEMOGLOBIN [id number] 00:00:00 Test Item Value Reference Range Interpretation Comments HEMOGLOBIN A1c (test code = 75040) 6.7 % HEMOGLOBIN [id number] 00:00:00 Test Item Value Reference Range Interpretation Comments HEMOGLOBIN A1c (test code = 29408) 6.7 % HEMOGLOBIN [id number] 00:00:00 Test Item Value Reference Range Interpretation Comments HEMOGLOBIN A1c (test code = 04483) 6.7 % HEMOGLOBIN [id number] 00:00:00 Test Item Value Reference Range Interpretation Comments HEMOGLOBIN A1c (test code = 35456) 6.7 % HEMOGLOBIN [id number] 00:00:00 Test Item Value Reference Range Interpretation Comments HEMOGLOBIN A1c (test code = 24316) 6.7 % HEMOGLOBIN [id number] 00:00:00 Test Item Value Reference Range Interpretation Comments HEMOGLOBIN A1c (test code = 87987) 6.7 % HEMOGLOBIN [id number] 00:00:00 Test Item Value Reference Range Interpretation Comments HEMOGLOBIN A1c (test code = 03586) 6.7 % HEMOGLOBIN [id number] 00:00:00 Test Item Value Reference Range Interpretation Comments HEMOGLOBIN A1c (test code = 19643) 6.7 % THYROID II PROFILE (T3U, T4, T7, TSH)2020-03-24 00:00:00 Test Item Value Reference Range Interpretation Comments T-UPTAKE (test code = 2817) 33.1 % THYROX. BIND. CAPAC. (test code 1.0 = 80900) T4 (THYROXINE) (test code = 7.6 UG/DL 2819) CORRECTED T4 (FTI) (test code = 7.6 UG/DL 2820) TSH, THIRD GENERATION (test code 0.687 UIU/ML = 2821) THYROID II PROFILE (T3U, T4, T7, TSH)2020-03-24 00:00:00 Test Item Value Reference Range Interpretation Comments T-UPTAKE (test code = 2817) 33.1 % THYROX. BIND. CAPAC. (test code 1.0 = 65334) T4 (THYROXINE) (test code = 7.6 UG/DL 2819) CORRECTED T4 (FTI) (test code = 7.6 UG/DL 2820) TSH, THIRD GENERATION (test code 0.687 UIU/ML = 2821) THYROID II PROFILE (T3U, T4, T7, TSH)2020-03-24 00:00:00 Test Item Value Reference Range Interpretation Comments T-UPTAKE (test code = 2817) 33.1 % THYROX. BIND. CAPAC. (test code 1.0 = 98884) T4 (THYROXINE) (test code = 7.6 UG/DL 2819) CORRECTED T4 (FTI) (test code = 7.6 UG/DL 2820) TSH, THIRD GENERATION (test code 0.687 UIU/ML = 2821) THYROID II PROFILE (T3U, T4, T7, TSH)2020-03-24 00:00:00 Test Item Value Reference Range Interpretation Comments T-UPTAKE (test code = 2817) 33.1 % THYROX. BIND. CAPAC. (test code 1.0 = 88048) T4 (THYROXINE) (test code = 7.6 UG/DL 2819) CORRECTED T4 (FTI) (test code = 7.6 UG/DL 2820) TSH, THIRD GENERATION (test code 0.687 UIU/ML = 2821) THYROID II PROFILE (T3U, T4, T7, TSH)2020-03-24 00:00:00 Test Item Value Reference Range Interpretation Comments T-UPTAKE (test code = 2817) 33.1 % THYROX. BIND. CAPAC. (test code 1.0 = 72179) T4 (THYROXINE) (test code = 7.6 UG/DL 2819) CORRECTED T4 (FTI) (test code = 7.6 UG/DL 2820) TSH, THIRD GENERATION (test code 0.687 UIU/ML = 2821) THYROID II PROFILE (T3U, T4, T7, TSH)2020-03-24 00:00:00 Test Item Value Reference Range Interpretation Comments T-UPTAKE (test code = 2817) 33.1 % THYROX. BIND. CAPAC. (test code 1.0 = 70387) T4 (THYROXINE) (test code = 7.6 UG/DL 2819) CORRECTED T4 (FTI) (test code = 7.6 UG/DL 2820) TSH, THIRD GENERATION (test code 0.687 UIU/ML = 2821) THYROID II PROFILE (T3U, T4, T7, TSH)2020-03-24 00:00:00 Test Item Value Reference Range Interpretation Comments T-UPTAKE (test code = 2817) 33.1 % THYROX. BIND. CAPAC. (test code 1.0 = 15630) T4 (THYROXINE) (test code = 7.6 UG/DL 2819) CORRECTED T4 (FTI) (test code = 7.6 UG/DL 2820) TSH, THIRD GENERATION (test code 0.687 UIU/ML = 2821) COMPREHENSIVE METABOLIC [id number] 00:00:00 Test Item Value Reference Range Interpretation Comments GLUCOSE (test code = 2217) 116 MG/DL BUN (test code = 2208) 18 MG/DL CREATININE (test code = 2214) 0.71 MG/DL eGFR AMER. (test code 110 ML/MIN/1.73 = 85850) eGFR NON- AMER. (test 95 ML/MIN/1.73 code = 68215) CALC BUN/CREAT (test code = 25 RATIO 2235) SODIUM (test code = 2231) 142 MEQ/L POTASSIUM (test code = 2228) 4.3 MEQ/L CHLORIDE (test code = 2215) 105 MEQ/L CARBON DIOXIDE (test code = 23 MEQ/L 2205) CALCIUM (test code = 2209) 9.5 MG/DL PROTEIN, TOTAL (test code = 7.8 G/DL 2228) ALBUMIN (test code = 2201) 4.5 G/DL CALC GLOBULIN (test code = 3.3 G/DL 2239) CALC A/G RATIO (test code = 1.4 RATIO 4) BILIRUBIN, TOTAL (test code = 0.3 MG/DL 2206) ALKALINE PHOSPHATASE (test 69 U/L code = 2204) AST (test code = 2218) 22 U/L ALT (test code = 2219) 23 U/L LIPID [id number] 00:00:00 Test Item Value Reference Range Interpretation Comments CHOLESTEROL (test code = 2210) 130 MG/DL TRIGLYCERIDES (test code = 2232) 137 MG/DL HDL CHOLESTEROL (test code = 2220) 43 MG/DL CALC LDL CHOL (test code = 2237) 65 MG/DL RISK RATIO LDL/HDL (test code = 1.51 RATIO 2238) HEMOGLOBIN [id number] 00:00:00 Test Item Value Reference Range Interpretation Comments HEMOGLOBIN A1c (test code = 23147) 6.8 % HEMOGLOBIN [id number] 00:00:00 Test Item Value Reference Range Interpretation Comments HEMOGLOBIN A1c (test code = 51180) 6.8 % HEMOGLOBIN [id number] 00:00:00 Test Item Value Reference Range Interpretation Comments HEMOGLOBIN A1c (test code = 75619) 6.8 % COMPREHENSIVE METABOLIC [id number] 00:00:00 Test Item Value Reference Range Interpretation Comments GLUCOSE (test code = 2217) 116 MG/DL BUN (test code = 2208) 18 MG/DL CREATININE (test code = 2214) 0.71 MG/DL eGFR AMER. (test code 110 ML/MIN/1.73 = 26580) eGFR NON- AMER. (test 95 ML/MIN/1.73 code = 96754) CALC BUN/CREAT (test code = 25 RATIO 2235) SODIUM (test code = 2231) 142 MEQ/L POTASSIUM (test code = 2228) 4.3 MEQ/L CHLORIDE (test code = 2215) 105 MEQ/L CARBON DIOXIDE (test code = 23 MEQ/L 2205) CALCIUM (test code = 2209) 9.5 MG/DL PROTEIN, TOTAL (test code = 7.8 G/DL 2228) ALBUMIN (test code = 2201) 4.5 G/DL CALC GLOBULIN (test code = 3.3 G/DL 2240) CALC A/G RATIO (test code = 1.4 RATIO 2234) BILIRUBIN, TOTAL (test code = 0.3 MG/DL 2206) ALKALINE PHOSPHATASE (test 69 U/L code = 2204) AST (test code = 2218) 22 U/L ALT (test code = 2219) 23 U/L COMPREHENSIVE METABOLIC [id number] 00:00:00 Test Item Value Reference Range Interpretation Comments GLUCOSE (test code = 2217) 116 MG/DL BUN (test code = 2208) 18 MG/DL CREATININE (test code = 2214) 0.71 MG/DL eGFR AMER. (test code 110 ML/MIN/1.73 = 53069) eGFR NON- AMER. (test 95 ML/MIN/1.73 code = 56779) CALC BUN/CREAT (test code = 25 RATIO 2234) SODIUM (test code = 2231) 142 MEQ/L POTASSIUM (test code = 2228) 4.3 MEQ/L CHLORIDE (test code = 2215) 105 MEQ/L CARBON DIOXIDE (test code = 23 MEQ/L 2205) CALCIUM (test code = 2209) 9.5 MG/DL PROTEIN, TOTAL (test code = 7.8 G/DL 2228) ALBUMIN (test code = 2201) 4.5 G/DL CALC GLOBULIN (test code = 3.3 G/DL 2240) CALC A/G RATIO (test code = 1.4 RATIO 2234) BILIRUBIN, TOTAL (test code = 0.3 MG/DL 2206) ALKALINE PHOSPHATASE (test 69 U/L code = 2204) AST (test code = 2218) 22 U/L ALT (test code = 2219) 23 U/L LIPID [id number] 00:00:00 Test Item Value Reference Range Interpretation Comments CHOLESTEROL (test code = 2210) 130 MG/DL TRIGLYCERIDES (test code = 2232) 137 MG/DL HDL CHOLESTEROL (test code = 2220) 43 MG/DL CALC LDL CHOL (test code = 2237) 65 MG/DL RISK RATIO LDL/HDL (test code = 1.51 RATIO 2238) LIPID [id number] 00:00:00 Test Item Value Reference Range Interpretation Comments CHOLESTEROL (test code = 2210) 130 MG/DL TRIGLYCERIDES (test code = 2232) 137 MG/DL HDL CHOLESTEROL (test code = 2220) 43 MG/DL CALC LDL CHOL (test code = 2237) 65 MG/DL RISK RATIO LDL/HDL (test code = 1.51 RATIO 2238) HEMOGLOBIN [id number] 00:00:00 Test Item Value Reference Range Interpretation Comments HEMOGLOBIN A1c (test code = 90786) 6.8 % HEMOGLOBIN [id number] 00:00:00 Test Item Value Reference Range Interpretation Comments HEMOGLOBIN A1c (test code = 43298) 6.8 % HEMOGLOBIN [id number] 00:00:00 Test Item Value Reference Range Interpretation Comments HEMOGLOBIN A1c (test code = 74041) 6.8 % COMPREHENSIVE METABOLIC [id number] 00:00:00 Test Item Value Reference Range Interpretation Comments GLUCOSE (test code = 7) 116 MG/DL BUN (test code = 2207) 18 MG/DL CREATININE (test code = 2214) 0.71 MG/DL eGFR AMER. (test code 110 ML/MIN/1.73 = 90849) eGFR NON- AMER. (test 95 ML/MIN/1.73 code = 72598) CALC BUN/CREAT (test code = 25 RATIO 2234) SODIUM (test code = 2231) 142 MEQ/L POTASSIUM (test code = 2228) 4.3 MEQ/L CHLORIDE (test code = 2215) 105 MEQ/L CARBON DIOXIDE (test code = 23 MEQ/L 2205) CALCIUM (test code = 220) 9.5 MG/DL PROTEIN, TOTAL (test code = 7.8 G/DL 2228) ALBUMIN (test code = 220) 4.5 G/DL CALC GLOBULIN (test code = 3.3 G/DL 2239) CALC A/G RATIO (test code = 1.4 RATIO 2233) BILIRUBIN, TOTAL (test code = 0.3 MG/DL 2207) ALKALINE PHOSPHATASE (test 69 U/L code = 2204) AST (test code = 2218) 22 U/L ALT (test code = 2219) 23 U/L COMPREHENSIVE METABOLIC [id number] 00:00:00 Test Item Value Reference Range Interpretation Comments GLUCOSE (test code = 2217) 116 MG/DL BUN (test code = 2208) 18 MG/DL CREATININE (test code = 2214) 0.71 MG/DL eGFR AMER. (test code 110 ML/MIN/1.73 = 86659) eGFR NON- AMER. (test 95 ML/MIN/1.73 code = 05446) CALC BUN/CREAT (test code = 25 RATIO 2235) SODIUM (test code = 2231) 142 MEQ/L POTASSIUM (test code = 2228) 4.3 MEQ/L CHLORIDE (test code = 2215) 105 MEQ/L CARBON DIOXIDE (test code = 23 MEQ/L 2205) CALCIUM (test code = 2209) 9.5 MG/DL PROTEIN, TOTAL (test code = 7.8 G/DL 2228) ALBUMIN (test code = 2201) 4.5 G/DL CALC GLOBULIN (test code = 3.3 G/DL 2240) CALC A/G RATIO (test code = 1.4 RATIO 4) BILIRUBIN, TOTAL (test code = 0.3 MG/DL 2206) ALKALINE PHOSPHATASE (test 69 U/L code = 2204) AST (test code = 2218) 22 U/L ALT (test code = 2219) 23 U/L LIPID [id number] 00:00:00 Test Item Value Reference Range Interpretation Comments CHOLESTEROL (test code = 2210) 130 MG/DL TRIGLYCERIDES (test code = 2232) 137 MG/DL HDL CHOLESTEROL (test code = 2220) 43 MG/DL CALC LDL CHOL (test code = 2237) 65 MG/DL RISK RATIO LDL/HDL (test code = 1.51 RATIO 2238) LIPID [id number] 00:00:00 Test Item Value Reference Range Interpretation Comments CHOLESTEROL (test code = 2210) 130 MG/DL TRIGLYCERIDES (test code = 2232) 137 MG/DL HDL CHOLESTEROL (test code = 2220) 43 MG/DL CALC LDL CHOL (test code = 2237) 65 MG/DL RISK RATIO LDL/HDL (test code = 1.51 RATIO 2238) HEMOGLOBIN [id number] 00:00:00 Test Item Value Reference Range Interpretation Comments HEMOGLOBIN A1c (test code = 12239) 6.8 % HEMOGLOBIN [id number] 00:00:00 Test Item Value Reference Range Interpretation Comments HEMOGLOBIN A1c (test code = 11220) 6.8 % HEMOGLOBIN [id number] 00:00:00 Test Item Value Reference Range Interpretation Comments HEMOGLOBIN A1c (test code = 02383) 6.8 % COMPREHENSIVE METABOLIC [id number] 00:00:00 Test Item Value Reference Range Interpretation Comments GLUCOSE (test code = 2217) 116 MG/DL BUN (test code = 2208) 18 MG/DL CREATININE (test code = 2214) 0.71 MG/DL eGFR AMER. (test code 110 ML/MIN/1.73 = 40128) eGFR NON- AMER. (test 95 ML/MIN/1.73 code = 26099) CALC BUN/CREAT (test code = 25 RATIO 2235) SODIUM (test code = 2231) 142 MEQ/L POTASSIUM (test code = 2228) 4.3 MEQ/L CHLORIDE (test code = 2215) 105 MEQ/L CARBON DIOXIDE (test code = 23 MEQ/L 6) CALCIUM (test code = 2209) 9.5 MG/DL PROTEIN, TOTAL (test code = 7.8 G/DL 2228) ALBUMIN (test code = 2201) 4.5 G/DL CALC GLOBULIN (test code = 3.3 G/DL 2240) CALC A/G RATIO (test code = 1.4 RATIO 4) BILIRUBIN, TOTAL (test code = 0.3 MG/DL 2206) ALKALINE PHOSPHATASE (test 69 U/L code = 2204) AST (test code = 2218) 22 U/L ALT (test code = 2219) 23 U/L COMPREHENSIVE METABOLIC [id number] 00:00:00 Test Item Value Reference Range Interpretation Comments GLUCOSE (test code = 2217) 116 MG/DL BUN (test code = 2208) 18 MG/DL CREATININE (test code = 2214) 0.71 MG/DL eGFR AMER. (test code 110 ML/MIN/1.73 = 66274) eGFR NON- AMER. (test 95 ML/MIN/1.73 code = 12041) CALC BUN/CREAT (test code = 25 RATIO 2235) SODIUM (test code = 2231) 142 MEQ/L POTASSIUM (test code = 2228) 4.3 MEQ/L CHLORIDE (test code = 2215) 105 MEQ/L CARBON DIOXIDE (test code = 23 MEQ/L 2205) CALCIUM (test code = 2209) 9.5 MG/DL PROTEIN, TOTAL (test code = 7.8 G/DL 2228) ALBUMIN (test code = 220) 4.5 G/DL CALC GLOBULIN (test code = 3.3 G/DL 2239) CALC A/G RATIO (test code = 1.4 RATIO 2233) BILIRUBIN, TOTAL (test code = 0.3 MG/DL 2206) ALKALINE PHOSPHATASE (test 69 U/L code = 2204) AST (test code = 2218) 22 U/L ALT (test code = 2219) 23 U/L LIPID [id number] 00:00:00 Test Item Value Reference Range Interpretation Comments CHOLESTEROL (test code = 2210) 130 MG/DL TRIGLYCERIDES (test code = 2232) 137 MG/DL HDL CHOLESTEROL (test code = 2220) 43 MG/DL CALC LDL CHOL (test code = 2237) 65 MG/DL RISK RATIO LDL/HDL (test code = 1.51 RATIO 2238) LIPID [id number] 00:00:00 Test Item Value Reference Range Interpretation Comments CHOLESTEROL (test code = 2210) 130 MG/DL TRIGLYCERIDES (test code = 2232) 137 MG/DL HDL CHOLESTEROL (test code = 2220) 43 MG/DL CALC LDL CHOL (test code = 2237) 65 MG/DL RISK RATIO LDL/HDL (test code = 1.51 RATIO 2238) HEMOGLOBIN [id number] 00:00:00 Test Item Value Reference Range Interpretation Comments HEMOGLOBIN A1c (test code = 52968) 6.8 % HEMOGLOBIN [id number] 00:00:00 Test Item Value Reference Range Interpretation Comments HEMOGLOBIN A1c (test code = 56023) 6.8 %
--- NOTE | 2023-01-14 16:08 | RAD REPORT ---
EXAM DESCRIPTION: RADTib Fib Left01/14/2023 3:24 pm CLINICAL HISTORY: Left leg pain status post injury FINDINGS: Moderate osteoarthritis medial compartment 4 millimeter bony density lies adjacent to the medial malleolus. 6 millimeter bony density lies adjacent to the lateral malleolus. Soft tissue swelling is present. It is uncertain if these indicate acute fractures or of the sequela of old trauma. Clinical correlati on is needed see if patient has point tenderness to suggest acuity
--- NOTE | 2023-01-14 16:08 | RAD REPORT ---
EXAM DESCRIPTION: RAD - Foot Left 3 View - 01/14/2023 3:24 pm CLINICAL HISTORY: Left Foot pain FINDINGS: 4 millimeter bony density lies adjacent to the medial malleolus. 6 millimeter bony density lies adjacent to the lateral malleolus. Soft tissue swelling is present. It is uncertain if these indicate acute fractures or of the sequela of old trauma. Clinical correlati on is needed see if patient has point tenderness to suggest acuity Large calcaneal spur
--- NOTE | 2023-01-14 16:29 | EDPHYS ---
Physician Documentation [facility] Name: Neelam Zazueta Age: 57 yrs Sex: Female : 1965 Arrival Date: 01/14/2023 Time: 14:03 Bed 12 Private MD: ED Physician Ernesto Jordan HPI: 01/14 16:24 This 57 yrs old Female presents to ER via Wheelchair with complaints of Ankle kb Injury. 16:24 The complaints affect the left ankle. The patient has not recently seen a physician. kb 16:25 The patient presents with decreased range of motion, an injury, pain, swelling, kb tenderness. Onset: The symptoms/episode began/occurred yesterday. Context: The problem was sustained at home, resulted from slip and fall, The patient can partially bear weight on the affected extremity. must have assistance. Associated signs and symptoms: Pertinent positives: swelling, Pertinent negatives: calf tenderness, fever, nausea, numbness, rash, tingling, vomiting, warmth, weakness. Modifying factors: The symptoms are alleviated by nothing, the symptoms are aggravated by weight bearing, movement. Severity of symptoms: At their worst the symptoms were moderate, in the emergency department the symptoms are unchanged. The patient has not experienced similar symptoms in the past. Historical: - Allergies: 14:43 No Known Allergies; iw - PMHx: 14:43 Diabetes mellitus; Hypothyroidism; Lupus; iw 14:43 Hypertensive disorder; iw - PSHx: 14:41 tubes tied; iw - Immunization history:: Adult Immunizations up to date. - Social history:: Smoking status: . ROS: 16:23 Constitutional: Negative for fever, chills, and weight loss. kb 16:23 MS/extremity: Positive for injury or acute deformity, decreased range of motion, pain, swelling, tenderness, of the left lateral ankle and left medial ankle. 16:23 All other systems are negative. Exam: 16:23 Constitutional: This is a well developed, well nourished patient who is awake, alert, kb and in no acute distress. Head/Face: Normocephalic, atraumatic. ENT: Moist Mucous membranes Cardiovascular: Regular rate and rhythm with a normal S1 and S2. No gallops, murmurs, or rubs. No pulse deficits. Respiratory: Respirations even and unlabored. No increased work of breathing. Talking in full sentences Abdomen/GI: Soft, non-tender. No distention Skin: Warm, dry with normal turgor. Normal color. Neuro: Awake and alert, GCS 15, oriented to person, place, time, and situation. Moves all extremities. Normal gait. 16:23 Musculoskeletal/extremity: Extremities: grossly normal except: noted in the left medial ankle and left lateral ankle: decreased ROM, pain, swelling, tenderness, ROM: limited active range of motion due to pain, Circulation is intact in all extremities. Sensation intact. Weight bearing: can bear weight with assistance only. Vital Signs: 14:40 BP 136 / 74; Pulse 71; Resp 16; Temp 98.9; Pulse Ox 99% on R/A; Weight 103.87 kg; iw Height 5 ft. 3 in. ; Pain 8/10; 14:40 Body Mass Index 40.57 (103.87 kg, 160.02 cm) iw 14:40 Pain Scale: Adult iw MDM: 14:42 Patient medically screened. kb 16:24 Data reviewed: vital signs, nurses notes. kb 16:25 Differential diagnosis: fracture, sprain. Counseling: I had a detailed discussion with kb the patient and/or guardian regarding: the historical points, exam findings, and any diagnostic results supporting the discharge/admit diagnosis, radiology results, the need for outpatient follow up, a orthopedic surgeon, to return to the emergency department if symptoms worsen or persist or if there are any questions or concerns that arise at home. 01/14 14:42 Order name: Foot Left 3 View XRAY; Complete Time: 16:12 kb 01/14 14:42 Order name: Tib Fib Left XRAY; Complete Time: 16:12 kb 01/14 16:13 Order name: Short Leg Splint; Complete Time: 17:10 kb Administered Medications: 17:10 Drug: traMADol PO 50 mg Route: PO; kb3 Disposition: 01/15 08:30 Co-signature as Attending Physician, Ernesto Jordan MD I reviewed the patient's care rn provided by the Advanced Practice Provider and agree with the diagnosis and treatment plan. Disposition Summary: 01/14/23 16:29 Discharge Ordered Location: Home kb Condition: Stable kb Diagnosis - Sprain of ankle kb - Fracture of lateral malleolus kb - Fracture of medial malleolus kb Followup: kb - With: Emergency Department - When: As needed - Reason: Worsening of condition Followup: kb - With: Private Physician - When: 2 - 3 days - Reason: Recheck today's complaints, Continuance of care, Re-evaluation by your physician Discharge Instructions: - Discharge Summary Sheet kb - Ankle Sprain, [id number] kb - Ankle Fracture, [id number] kb Forms: - Medication Reconciliation Form kb - Thank You Letter kb - Antibiotic Education kb - Prescription Opioid Use kb Prescriptions: - Diclofenac Sodium 75 mg Oral tablet,delayed release (DR/EC) - take 1 tablet by ORAL route 2 times per day As needed; 30 tablet; Refills: 0, kb Product Selection Permitted Signatures: Dispatcher [employer] EDMS Liz Toledo, TREY-Geovanna QIUP-Ifeoma Padilla, RN Ernesto Haywood MD MD rn Bradberry, Kelly, RN RN kb3 Corrections: (The following items were deleted from the chart) 01/14 16:23 16:13 Crutches ordered. kb bp
--- NOTE | 2023-01-14 16:29 | ER ---
Nurse's Notes [facility] Name: Neelam Zazueta Age: 57 yrs Sex: Female : 1965 Arrival Date: 01/14/2023 Time: 14:03 Bed 12 Private MD: Diagnosis: Sprain of ankle;Fracture of lateral malleolus;Fracture of medial malleolus Presentation: 01/14 14:40 Chief complaint: Patient states: slipped an fell yesterday , fell on left knee , left iw hip and rolled her left ankle. Coronavirus screen: At this time, the client does not indicate any symptoms associated with coronavirus-19. Ebola Screen: Patient negative for fever greater than or equal to 101.5 degrees Fahrenheit, and additional compatible Ebola Virus Disease symptoms Patient denies exposure to infectious person. Patient denies travel to an Ebola-affected area in the 21 days before illness onset. No symptoms or risks identified at this time. Initial Sepsis Screen: Does the patient meet any 2 criteria? No. Patient's initial sepsis screen is negative. Does the patient have a suspected source of infection? No. Patient's initial sepsis screen is negative. Risk Assessment: Do you want to hurt yourself or someone else? Patient reports no desire to harm self or others. 14:40 Method Of Arrival: Wheelchair iw 14:40 Acuity: SOFI 4 iw 14:40 Onset of symptoms was January 13, 2023. Triage Assessment: 16:30 General: Appears in no apparent distress. uncomfortable, obese, Behavior is kb3 cooperative, appropriate for age, anxious. Pain: Complains of pain in left leg. EENT: No deficits noted. Neuro: No deficits noted. Cardiovascular: No deficits noted. Respiratory: No deficits noted. GI: No signs and/or symptoms were reported involving the gastrointestinal system. : No signs and/or symptoms were reported regarding the genitourinary system. Derm: No deficits noted. Musculoskeletal: Reports pain in left leg. Historical: - Allergies: 14:43 No Known Allergies; iw - PMHx: 14:43 Diabetes mellitus; Hypothyroidism; Lupus; iw 14:43 Hypertensive disorder; iw - PSHx: 14:41 tubes tied; iw - Immunization history:: Adult Immunizations up to date. - Social history:: Smoking status: . Screenin:17 [facility] ED Fall Risk Assessment (Adult) History of falling in the last 3 months, kb3 including since admission Yes- single mechanical fall (1 pt). Abuse screen: Denies threats or abuse. Denies injuries from another. Nutritional screening: No deficits noted. Tuberculosis screening: No symptoms or risk factors identified. Assessment: 17:17 General: SEE TRIAGE NOTE. kb3 Vital Signs: 14:40 BP 136 / 74; Pulse 71; Resp 16; Temp 98.9; Pulse Ox 99% on R/A; Weight 103.87 kg; iw Height 5 ft. 3 in. ; Pain 8/10; 14:40 Body Mass Index 40.57 (103.87 kg, 160.02 cm) iw 14:40 Pain Scale: Adult iw ED Course: 14:07 Patient arrived in ED. im 14:26 Liz Toledo FNP-C is PHCP. kb 14:26 Ernesto Jordan MD is Attending Physician. kb 14:41 Triage completed. iw 14:43 Arm band placed on. iw 15:25 Foot Left 3 View XRAY In Process Unspecified. EDMS 15:25 Tib Fib Left XRAY In Process Unspecified. EDMS 16:19 Reece Maravilla, RN is Primary Nurse. bp 17:10 Crutch training done. Orthoglass splint: Posterior short lleg splint applied on left kb3 leg. 17:17 Patient has correct armband on for positive identification. Bed in low position. Call kb3 light in reach. Side rails up X2. 17:18 No provider procedures requiring assistance completed. Patient did not have IV access kb3 during this emergency room visit. Administered Medications: 17:10 Drug: traMADol PO 50 mg Route: PO; kb3 Medication: 17:17 VIS not applicable for this client. kb3 Outcome: 16:29 Discharge ordered by . kb 17:18 Discharged to home via wheelchair, with family. kb3 17:18 Condition: stable 17:18 Discharge instructions given to patient, family, Instructed on discharge instructions, follow up and referral plans. medication usage, crutch walking, Demonstrated understanding of instructions, follow-up care, medications, crutch walking, splint care, Prescriptions given X 1. 17:18 Patient left the ED. kb3 Signatures: Dispatcher [employer] EDMS Liz Toledo FNP-C FNP-Ckb Williams Ifeoma, RN RN iw Reece Maravilla RN RN bp Dori Sellers RN RN kb3 Amina White Corrections: (The following items were deleted from the chart) 14:43 14:40 Pulse 71bpm; Resp 16bpm; Pulse Ox 99% RA; Temp 98.9F; iw iw
[2023-01-14] MEDS ORDERED: TRAMADOL HCL 50 MG TAB ONE (17:13)
[2023-01-14 17:39] VITALS: BP 136/74; TEMP 98.9; O2SAT 99
== END 2023-01-14 17:18 | disposition home or self-care (01) ==
LOC: ER 14:03
PROC: 2W3MX1Z Immobilization of Left Lower Extremity using Splint (ICD-10-PCS; principal; 2023-01-14)
DX: S82.62XA Displaced fracture of lateral malleolus of left fibula, initial encounter for closed fracture (principal); S82.52XA Displaced fracture of medial malleolus of left tibia, initial encounter for closed fracture
CPT/HCPCS: 99284